=== PATIENT | female | born 1970 | race Caucasian/White ===

== ENCOUNTER 2021-02-20 14:34 | Outpatient (REF) | payer OTHER, SELFPAY ==
[2021-02-20 16:56] LABS: Hematocrit 36.5 % (37-47); Hemoglobin 11.5 g/dl (12.0-16.0); Mean Corpuscular HGB Conc 31.5 g/dl (31.0-35.0); Mean Corpuscular Hemoglobin 26.3 pg (27.0-33.0); Mean Corpuscular Volume 83.3 fL (80-98); Mean Platelet Volume 10.9 fL (9.4-12.3); Platelet Count 314 X10*3/uL (160-400); Red Blood Count 4.38 X10*6/uL (4.20-5.50); Red Cell Distribution Width 16.9 % (11.0-16.0)
[2021-02-20 17:22] LABS: Alanine Aminotransferase 18 U/L (0-31); Albumin Level 4.2 g/dL (3.5-5.0); Alkaline Phosphatase 39 U/L (39-117); Anion Gap 13 (12-20); Aspartate Amino Transferase 21 U/L (5-31); Bilirubin Total 0.4 mg/dL (0.0-1.0); Blood Urea Nitrogen 11 mg/dL (9-16); Calcium 9.2 mg/dL (8.4-10.2); Carbon Dioxide 26 mmol/L (22-29); Chloride 104 mmol/L (96-108); Cholesterol 213 mg/dL; Estimated Glomerular Filt Rate > 60; Glucose Fasting 65 mg/dL (60-99); HDL Cholesterol 72 mg/dL; Iron 41 mcg/dL (30-160); LDL Cholesterol Calculated 129 mg/dl; Percent Iron Saturation 10 % (15-50); Potassium 4.4 mmol/L (3.3-5.1); Sodium 139 mmol/L (135-145); Total Iron Binding Capacity 411 mcg/dL (228-428); Total Protein 7.1 g/dL (6.5-8.0); Triglycerides 63 mg/dL; Unsaturated Iron Binding 370 ug/dL
[2021-02-20 17:42] LABS: TSH reflex Free T4 0.49 uIU/mL (0.32-4.0)
== END 2021-02-20 14:35 | disposition home or self-care (01) ==
LOC: HO.HMGCLDS 14:34
PROVIDERS: PCP Internal Medicine; Visit Provider Internal Medicine
DX: Z00.00 Encounter for general adult medical examination without abnormal findings (principal); I10 Essential (primary) hypertension
CPT/HCPCS: 36415; 80053; 80061; 83540; 84443; 85027

== ENCOUNTER 2021-08-28 | Outpatient (REF) | payer OTHER, SELFPAY | END 2021-08-28 00:01 | disposition home or self-care (01) | LOC: HO.LNP | PROVIDERS: Visit Provider Internal Medicine | DX: Z12.4 Encounter for screening for malignant neoplasm of cervix (principal); Z11.51 Encounter for screening for human papillomavirus (HPV) | CPT/HCPCS: 87624 ==

== ENCOUNTER 2021-09-01 13:10 | Outpatient (REF) | payer OTHER, SELFPAY ==
[2021-09-04 02:32] LABS: HPV mRNA E6/E7 Not Detected (Not Detected)
== END 2021-09-01 13:11 | disposition home or self-care (01) ==
LOC: HO.LAB 13:10
PROVIDERS: Visit Provider Internal Medicine
DX: Z12.4 Encounter for screening for malignant neoplasm of cervix (principal); Z11.51 Encounter for screening for human papillomavirus (HPV)
CPT/HCPCS: 87624; 88142

== ENCOUNTER → 2021-11-25 12:57 | Outpatient (BNVA) | payer OTHER, SELFPAY | PROVIDERS: PCP Internal Medicine; Referring Provider Internal Medicine; Visit Provider Nurse Practitioner Family ==

== ENCOUNTER 2022-11-07 10:14 | Outpatient (REF) | payer OTHER, SELFPAY ==
[2022-11-07 11:09] LABS: MANUAL DIFF FLAG NO
[2022-11-07 11:11] LABS: Basophils Percent Auto 0.3 % (0-2); Eosinophils Percent Auto 0.3 % (0-4); Hematocrit 32.7 % (37.0-47.0); Hemoglobin 10.1 g/dl (12.0-16.0); Imm Gran Pct Auto 0.3 % (0.0-0.4); Lymphocytes Percent Auto 30.7 % (20-40); Mean Corpuscular HGB Conc 30.9 g/dl (31.0-35.0); Mean Corpuscular Hemoglobin 24.2 pg (27.0-33.0); Mean Corpuscular Volume 78.2 fL (80.0-98.0); Mean Platelet Volume 9.8 fL (9.4-12.3); Monocytes Percent Auto 8.3 % (2-11); Neutrophils Percent Auto 60.1 % (45-73); Platelet Count 372 X10*3/uL (160-400); Red Blood Count 4.18 X10*6/uL (4.20-5.50); Red Cell Distribution Width 17.3 % (11.0-16.0); White Blood Count 5.9 X10*3/uL (4.8-10.8)
[2022-11-07 11:12] LABS: Imm Gran Abs Auto 0.02 X10*3/uL (0.00-0.03); Lymphocytes Absolute Auto 1.8 X10*3/uL (1.2-4.9); Monocytes Absolute Auto 0.5 X10*3/uL (0.1-1.2); Neutrophils Absolute Auto 3.5 x10*3/uL (2.0-8.3)
[2022-11-07 11:45] LABS: Alanine Aminotransferase 19 U/L (0-31); Albumin Level 3.8 g/dL (3.5-5.0); Alkaline Phosphatase 40 U/L (39-117); Anion Gap 12 (12-20); Aspartate Amino Transferase 18 U/L (5-31); Bilirubin Total 0.3 mg/dL (0.0-1.0); Blood Urea Nitrogen 15 mg/dL (9-16); Calcium 9.1 mg/dL (8.4-10.2); Carbon Dioxide 26 mmol/L (22-29); Chloride 107 mmol/L (96-108); Cholesterol 253 mg/dL; Estimated Glomerular Filt Rate > 60; Glucose Fasting 77 mg/dL (60-99); HDL Cholesterol 81 mg/dL; LDL Cholesterol Calculated 158 mg/dl; Potassium 4.9 mmol/L (3.3-5.1); Sodium 140 mmol/L (135-145); Total Protein 6.8 g/dL (6.5-8.0); Triglycerides 73 mg/dL
[2022-11-07 12:00] LABS: TSH reflex Free T4 0.71 uIU/mL (0.32-4.0); Vitamin D 25-OH Total 46.4 ng/mL (>30)
== END 2022-11-07 10:15 | disposition home or self-care (01) ==
LOC: HO.HMGCLDS 10:14
PROVIDERS: PCP Internal Medicine; Visit Provider Internal Medicine
DX: Z00.00 Encounter for general adult medical examination without abnormal findings (principal); I10 Essential (primary) hypertension
CPT/HCPCS: 36415; 80053; 80061; 82306; 84443; 85025

== ENCOUNTER 2022-12-09 10:53 | Outpatient (REF) | payer OTHER, SELFPAY ==
--- NOTE | ~2022-12-09 | MM_ITS ---
EXAMINATION: MM DIAGNOSTIC DIGITAL BREAST TOMOSYNTHESIS, BILATERAL US BREAST, BILATERAL CLINICAL INFORMATION: Left breast lump. Right breast pain. The lifetime risk of breast cancer based on the Tyrer-Cuzick Model is 7.9%. COMPARISON: Mammography: None TECHNIQUE: Digital breast tomosynthesis is performed in both the craniocaudal and mediolateral oblique views along with computer-aided detection (CAD). Synthesized 2D images are generated from the tomosynthesis. Bilateral targeted ultrasound FINDINGS: The breasts are heterogeneously dense, which may obscure small masses (ACR BI-RADS breast composition Category c). There are no significant masses, abnormal calcifications, or other abnormalities. Targeted ultrasound evaluation of the right breast at approximately 8 to 10 o'clock position which has been occurring for 6 months before menses. No abnormal cyst or solid mass was identified. No abnormal region of distal sound shadowing. No edematous change within the parenchyma is seen. No suspicious lymph nodes. Targeted ultrasound evaluation of the left breast upper outer quadrant was then performed. No abnormal cyst or solid lesion is identified. No region of abnormal distal sound shadowing. No edematous change within the parenchyma is noted. Results are discussed with the patient at time of visit. MM/MM tomosynthesis diagnostic BI IMPRESSION: No specific mammographic or ultrasound findings to suggest malignancy. ASSESSMENT: BI-RADS 1: Negative RECOMMENDATION: Routine annual screening. Clinical follow-up for question of palpable abnormality. This patient's information was entered into a reminder system with a target due date for their next mammogram.
== END 2022-12-09 10:54 | disposition home or self-care (01) ==
LOC: HO.MAMMO 10:53
PROVIDERS: PCP Internal Medicine; Visit Provider Internal Medicine
DX: N64.4 Mastodynia (principal); N63.21 Unspecified lump in the left breast, upper outer quadrant
CPT/HCPCS: 76642; 77062; 77066

== ENCOUNTER 2023-04-03 12:26 | Emergency (ER) | payer OTHER, SELFPAY ==
[2023-04-03 12:54] VITALS: BP 168/72; PULSE 60; RESP 16; TEMP 36.6; O2SAT 99; BMI 28.2
--- NOTE | 2023-04-03 12:54 | ED_ITS ---
HPI - General Adult General Chief complaint: Allergic Reaction Stated complaint: rash/ hives on face- allergic reacting? Time Seen by Provider: 04/03/23 13:00 Source: patient and family Mode of arrival: ambulatory Limitations: no limitations History of Present Illness HPI narrative: 52-year-old female with history of hypertension, anemia, hyperlipidemia, history of urticaria in the past who is presenting to the ER for evaluation of a burning, red, itchy rash and hives on her face for the last 4 days. Patient reports that the rash started around her eyes bilaterally and has spread to the entirety of her face. She has been taking Bhavani for possible allergies. She denies any new medications, lotions, detergents, creams. She states she has a history of full body urticaria in the past, several years ago that resolved on its own. She denies any changes in her vision but she has some burning sensation as the rash is close to her eyes. There are no lesions on her soles or palms. Today she reports a new small lesion on the roof of her mouth. she denies any trauma. She denies any pain. MD complaint: Facial rash Onset (ago): day(s) (4) Location: face and eyes Radiation: non-radiation Severity: moderate Quality: burning and other ( pruritic) Pain Consistency: constant Relieving factors: none Exacerbating factors: none Associated symptoms: denies other symptoms Treatments prior to arrival: none Related Data Previous Rx's Medication Instructions Recorded bisacodyl 5 mg tablet,delayed 10 mg PO ONCE 1 day #2 tabs 11/25/21 release (Dulcolax (bisacodyl)) docusate sodium 100 mg capsule 100 mg PO BEDTIME #30 caps 11/25/21 polyethylene glycol 3350 17 238 g PO ONCE #238 grams 11/25/21 gram/dose oral powder (Miralax) olmesartan 5 mg tablet 10 mg PO DAILY #180 tabs 09/03/22 diphenhydramine HCl 25 mg capsule 50 mg PO TID PRN itching #30 caps 04/03/23 (Benadryl) famotidine 40 mg tablet (Pepcid) 40 mg PO DAILY #30 tabs 04/03/23 prednisone 10 mg tablets in a dose See Taper PO DAILY #48 ea 04/03/23 pack Allergies Allergy/AdvReac Type Severity Reaction Status Date / Time Seasonal Allergies Allergy Mild unknown Verified 01/29/23 12:56 Review of Systems Review of Systems: Yes all other systems are reviewed and are negative [facility] Past Medical History Medical History Annual physical exam Enlarged thyroid HTN (hypertension) Mammogram declined Surgical History Hx of appendectomy Family History Family History (Updated 01/29/23 @ 13:07 by DARRYL Trejo) Father No problems noted. Mother Hypertension Social History Social History Housing: House Patient Tobacco Use Status: Never used Tobacco e-Cigarette/Vaping Use: Never Used Advance Directives: No Current occupational status: employed Cognitive needs: No Hearing needs: No Vision needs: No Physical Exam ED Vital Signs: Vital Signs - 24 hr 04/03/23 12:54 Temperature 97.9 F Pulse Rate 60 Respiratory Rate 16 Blood Pressure 168/72 H Pulse Oximetry 99 Oxygen Delivery Method Room Air BMI result Body Mass Index 28.2 Appearance: Alert. Oriented X3. No acute distress. HEENT: normocephalic, atraumatic, there is an erythematous, raised urticarial type rash on the face, including the periorbital region, nasal labial folds, forehead, chin. cheeks are partially spared. Airway is patent. No bugle lesions. No lip swelling or tongue swelling. There is a small, less than 1 cm lesion on the hard palate, nontender. Neck: No cervical lymphadenopathy. Normal inspection, no swelling. CVS: Normal heart rate and rhythm. Pulses normal. Respiratory: No respiratory distress. Lungs are clear throughout Skin: Skin warm and dry. Normal skin color. See HEENT exam for facial findings Extremities: normal inspection x4, no rash on the extremities. Neuro: Oriented X 3. No motor deficit. No sensory deficit. Course Course Course Narrative: RME performed by Deborah Geiger PA-C. Patient is a 52 year old assigned female at presenting to the emergency department with a rash to her face. Patient placed back in the waiting room pending room availability. Medications Administered Discontinued Medications Generic Name Dose Route Start Last Admin Trade Name Freq PRN Reason Stop Dose Admin Diphenhydramine HCl 50 mg 04/03/23 13:36 04/03/23 13:53 Diphenhydramine Hcl 25 Mg Capsule PO 04/03/23 13:37 50 mg ONCE ONE Administration Methylprednisolone Sodium Succinate 60 mg 04/03/23 13:36 04/03/23 13:55 Methylprednisolone Sod Succ 125 Mg/2 Ml Vial IM 04/03/23 13:37 60 mg ONCE ONE Administration Medical Decision Making Medical Decision Making [facility] Narrative: 52-year-old female with history of HTN, HLD, anemia, history of urticaria in the past presents to the ER for evaluation of a red, itchy, burning rash on the face for the last 4 days. No improvement with Bhavani. She does have a lesion on her hard palate that seems to be unrelated. No other mucosal lesions. No desquamation. vital signs are stable. Lab workup was unremarkable. Case was discussed with Dr. Faustino chowdary who is in agreement with steroids, Benadryl. Patient was encouraged follow-up with her primary care doctor this week and o btain a Dermatology referral given this is a recurrent issue for the patient. Comfortable discharge home. We discussed strict return precautions. Stable for discharge. Differential Diagnosis Differential Diagnoses: The differential diagnosis associated with the presentation includes eczema, allergic dermatitis, contact dermatitis, vasculitis, doubt TENS or SJS Lab Data [facility] Lab Attestation statement: I reviewed the patient's lab results. Normal CBC, normal BMP, unremarkable. 04/03/23 13:45 04/03/23 13:45 Labs: Lab Results 04/03/23 04/03/23 Range/Units 13:45 13:45 WBC 10.5 (4.8-10.8) X10*3/uL RBC 4.14 L (4.20-5.50) X10*6/uL Hgb 12.1 (12.0-16.0) g/dl Hct 37.8 (37.0-47.0) % MCV 91.3 (80.0-98.0) fL MCH 29.2 (27.0-33.0) pg MCHC 32.0 (31.0-35.0) g/dl RDW 14.6 (11.0-16.0) % Plt Count 357 (160-400) X10*3/uL MPV 9.8 (9.4-12.3) fL Immature Gran % (Auto) 0.4 (0.0-0.4) % Neut % (Auto) 72.9 (45-73) % Lymph % (Auto) 19.1 L (20-40) % [place] % (Auto) 7.0 (2-11) % Eos % (Auto) 0.2 (0-4) % Baso % (Auto) 0.4 (0-2) % Lymph # (Auto) 2.0 (1.2-4.9) X10*3/uL [place] # (Auto) 0.7 (0.1-1.2) X10*3/uL Eos # (Auto) 0.0 (0.0-0.4) X10*3/uL Baso # (Auto) 0.0 (0.0-0.2) X10*3/uL Abs Immat Gran (auto) 0.04 H (0.00-0.03) X10*3/uL Absolute Neuts (auto) 7.6 (2.0-8.3) x10*3/uL Absolute Nucleated RBC 0.000 (0.0-0.012) X10*3/uL Nucleated RBC % (auto) 0.0 (0.0-0.2) /100WBC Sodium 143 (135-145) mmol/L Potassium 4.1 (3.3-5.1) mmol/L Chloride 106 (96-108) mmol/L Carbon Dioxide 28 (22-29) mmol/L Anion Gap 13 (12-20) BUN 12 (9-16) mg/dL Creatinine 0.83 (0.5-1.4) mg/dL Estim Creat Clear Calc 75.5 Estimated GFR > 60 Random Glucose 83 (60-115) mg/dL Calcium 9.0 (8.4-10.2) mg/dL Prescription Management I considered prescription management with: Other ( Prednisone and Benadryl) Chronic Conditions Patient?s care impacted by: Hypertension Critical Care Time Critical Care Time Critical Care Time: No Discharge Plan Discharge Clinical Impression: Urticaria Patient Disposition: Home, Self-Care Instructions: Urticaria (ED) Additional Instructions: Your labs today were unremarkable. Your given intramuscular steroids in the emergency department. It is unclear the cause of your rash. Recommend taking the prescribed steroid medication as directed. Start the prednisone taper tomorrow, complete the entire course and do not miss any doses. Take Benadryl 50 mg every 6-8 hours as needed for rash and itching. Take Pepcid for the next 2 weeks. Follow-up with your primary care doctor this week. You may need a dermatology referral. Prescriptions: New prednisone 10 mg tablets,dose pack See Taper PO DAILY Qty: 48 0RF Taper: Prednisone 40 mg daily for 3 Days and 0 Hour 30 mg daily for 3 Days and 0 Hour 20 mg daily for 3 Days and 0 Hour 10 mg daily for 3 Days and 0 Hour Rx Instructions: discard remainder diphenhydramine HCl [Benadryl] 25 mg capsule 50 mg PO TID PRN (Reason: itching) Qty: 30 0RF famotidine [Pepcid] 40 mg tablet 40 mg PO DAILY Qty: 30 0RF No Action olmesartan 5 mg tablet 10 mg PO DAILY Qty: 180 3RF bisacodyl [Dulcolax (bisacodyl)] 5 mg tablet,delayed release (DR/EC) 10 mg PO ONCE 1 Days Qty: 2 0RF Rx Instructions: take 2 tabs at noon the day before your colonoscopy docusate sodium 100 mg capsule 100 mg PO BEDTIME Qty: 30 3RF polyethylene glycol 3350 [Miralax] 17 gram/dose powder 238 g PO ONCE Qty: 238 0RF Rx Instructions: As directed by gastroenterology department at [facility] Interventions: ED Discharge Assessment Last Done: 04/03/23 14:27
[2023-04-03 13:49] LABS: MANUAL DIFF FLAG NO
[2023-04-03 13:52] LABS: Basophils Percent Auto 0.4 % (0-2); Eosinophils Percent Auto 0.2 % (0-4); Hematocrit 37.8 % (37.0-47.0); Hemoglobin 12.1 g/dl (12.0-16.0); Imm Gran Abs Auto 0.04 X10*3/uL (0.00-0.03); Imm Gran Pct Auto 0.4 % (0.0-0.4); Lymphocytes Percent Auto 19.1 % (20-40); Mean Corpuscular Hemoglobin 29.2 pg (27.0-33.0); Mean Corpuscular Volume 91.3 fL (80.0-98.0); Mean Platelet Volume 9.8 fL (9.4-12.3); Monocytes Absolute Auto 0.7 X10*3/uL (0.1-1.2); Neutrophils Absolute Auto 7.6 x10*3/uL (2.0-8.3); Neutrophils Percent Auto 72.9 % (45-73); Platelet Count 357 X10*3/uL (160-400); Red Blood Count 4.14 X10*6/uL (4.20-5.50); Red Cell Distribution Width 14.6 % (11.0-16.0); White Blood Count 10.5 X10*3/uL (4.8-10.8)
[2023-04-03] MEDS: diphenhydrAMINE HCL 25 MG CAPSULE 50 MG PO (13:53)
[2023-04-03] MEDS: methylPREDNISolone Sod Succ 125 MG/2 ML VIAL 60 MG IM (13:55)
[2023-04-03 14:09] LABS: Anion Gap 13 (12-20); Blood Urea Nitrogen 12 mg/dL (9-16); Carbon Dioxide 28 mmol/L (22-29); Chloride 106 mmol/L (96-108); Creatinine Clr Calc Pharmacy 75.5; Estimated Glomerular Filt Rate > 60; Glucose Random 83 mg/dL (60-115); Potassium 4.1 mmol/L (3.3-5.1); Sodium 143 mmol/L (135-145)
== END 2023-04-03 14:28 | disposition home or self-care (01) ==
PROVIDERS: Physician Assistant; Emergency Provider Emergency Medicine; PCP Internal Medicine
DX: L50.9 Urticaria, unspecified (principal); I10 Essential (primary) hypertension; E78.5 Hyperlipidemia, unspecified; Z79.899 Other long term (current) drug therapy
CPT/HCPCS: 36415; 80048; 85025; 96372; 99282; 99284; J2930

== ENCOUNTER 2023-04-23 06:50 | Day surgery (SDC) | payer OTHER, SELFPAY ==
[2023-04-21 12:49] VITALS: BMI 28.3
--- NOTE | 2023-04-22 12:09 | HO.ANESPROP2 ---
Documented by User: Elizabeth Ward NP 04/22/23 12:11 HPI - Anesthesia Eval Consult details Narrative: 52yo F for Colonoscopy PMFSH Active Problems Active Problems: All Active Problems (Updated 04/04/23 @ 00:00 by Background Daemon) Hyperlipemia (Acute) Anemia (Acute) Breast lump in upper outer quadrant (Acute) Mammogram declined (Acute) Annual physical exam (Acute) HTN (hypertension) (Acute) Past Medical History Medical History (Updated 04/04/23 @ 00:00 by Background Daemon) Annual physical exam Enlarged thyroid HTN (hypertension) Mammogram declined Family History Family History (Updated 01/29/23 @ 13:07 by DARRYL Trejo) Father No problems noted. Mother Hypertension Surgical History Surgical History (Updated 04/23/23 @ 07:24 by Melissa Benitez RN) Hx of appendectomy Hx of colonoscopy Social History Social History Housing: House Patient Tobacco Use Status: Never used Tobacco e-Cigarette/Vaping Use: Never Used Are you DNR?: No Advance Directives: No Advance Directives Information Provided: Yes Nutrition Risks: No Nutritional Risk Patient : No Current occupational status: employed Cognitive needs: No Hearing needs: No Vision needs: No Meds Allergies Allergy/AdvReac Type Severity Reaction Status Date / Time Seasonal Allergies Allergy Mild unknown Verified 01/29/23 12:56 Exam Exam Date and Time: April 22, 2023 1209 Height,Weight and Vital Signs: Height 5 ft 2 in Weight 70.307 kg Pertinent Lab Results Pertinent Lab Results: Laboratory Tests 04/03/23 04/03/23 13:45 13:45 WBC 10.5 Hgb 12.1 Hct 37.8 Plt Count 357 Sodium 143 Potassium 4.1 Chloride 106 Carbon Dioxide 28 BUN 12 Creatinine 0.83 Assessment and Plan Assessment Anesthesia Assessment: Chart Reviewed Documented by User: Rikki Merino MD 04/23/23 07:45 PMFSH Past Medical History Medical History (Updated 04/04/23 @ 00:00 by Norman Esquivel) Annual physical exam Enlarged thyroid HTN (hypertension) Mammogram declined Family History Family History (Updated 01/29/23 @ 13:07 by DARRYL Trejo) Father No problems noted. Mother Hypertension Family history of problems with anesthesia: No Surgical History Surgical History (Updated 04/23/23 @ 07:24 by Melissa Benitez RN) Hx of appendectomy Hx of colonoscopy History of Problems with Anesthesia: No Social History Social History Housing: House Patient Tobacco Use Status: Never used Tobacco e-Cigarette/Vaping Use: Never Used Are you DNR?: No Advance Directives: No Advance Directives Information Provided: Yes Nutrition Risks: No Nutritional Risk Patient : No Current occupational status: employed Cognitive needs: No Hearing needs: No Vision needs: No Meds Allergies Allergy/AdvReac Type Severity Reaction Status Date / Time Seasonal Allergies Allergy Mild unknown Verified 01/29/23 12:56 Exam Airway Mallampati Class: II TM Dist: >3cm Neck ROM: Full Loose/Missing/Broken Teeth: No Heart: ok Lungs: ok Assessment and Plan Final Anesthetic Review Family History of Problems with Anesthesia: No History of Problems with Anesthesia: No NPO: Yes ASA Class: II Final Preanesthetic Review: No Changes in Pt Med Stat, Meds/Allgs Chart Reviewed, Consent Obtained/Reviewed and Anes Risks/Benef Reviewed Patient Risk: Low Procedure Risk: Low Anesthetic Plan Anesthetic Plan: MAC: and Agree w/ Assess. and Plan Disposition: Standard PACU
[2023-04-23 06:59] VITALS: BP 170/83; PULSE 65; RESP 20; TEMP 36.5; O2SAT 98
[2023-04-23] MEDS: Lactated Ringers 1,000 ML 100 ML IVCONT (07:22)
--- NOTE | 2023-04-23 07:26 | PC.NURSE ---
facial rash redness secondary to anxiety per pt
--- NOTE | 2023-04-23 07:26 | MHC.SHP ---
Pre-Procedural Eval Section A Date of Service: 04/23/23 The patient is an INPATIENT: No The History & Physical has been completed within 30 days and I have reviewed it.: No Section B Chief Complaint: Screening, Constipation, Relevant Family History (Specify if Yes): No Relevant Social History: None Present Medications: see Short Stay Collaborative assessment Medical History: Significant History (Enlarged thyroid HTN (hypertension) Mammogram declined) History of Previous Operations: Relevant previous surgery/procedure and date(s) (History of appendicectomy) Allergies: Allergies Allergy/AdvReac Type Severity Reaction Status Date / Time Seasonal Allergies Allergy Mild unknown Verified 01/29/23 12:56 Review of Systems Sugical H&P ROS: Negative: Constitution, Cardiovascular, Respiratory and Gastrointestinal Exam Surgical H&P Exam: Normal: Heart, Normal: Lungs, Normal: Extremities and Normal: Abdomen Plan Diagnosis/Plan: Unchanged I have reviewed the history and physical and performed a pertinent physical examination on my patient. No changes have occurred unless specified. Time Spent With Patient Time: Total time managing care of this patient today ____ minutes.
--- NOTE | 2023-04-23 08:42 | W.PM.OPN ---
Operative Note Operative Note Date of Service: 04/23/23 Narrative: COLONOSCOPY TILL CECUM WITH BIOPSIES Pre-op diagnosis: Colon cancer screening (1st colonoscopy) Post-op diagnosis:? Colon polyps, diverticulosis, hemorrhoids Endoscopist:? Alex Che MD Anesthesia:?MAC Consent: Indications for the procedure and potential complications of bleeding, perforation, reaction to medications and missed diagnosis were discussed with the patient and informed consent was obtained. Instrument: Olympus PCF H 190 L variable stiffness pediatric colonoscope Monitoring: Vital signs and clinical assessment, intermittent blood pressure monitoring, continuous EKG monitoring, Pulse oximetry and Carbon Dioxide monitoring were done throughout the procedure. Please see anesthesia flowsheet. Colon withdrawl time was 17 minutes. Procedure: The patient was placed in the left lateral decubitis position and pre-procedure medications were administered. After a digital rectal examination of the ano-rectum, the video colonoscope was inserted into the rectum and advanced through the colon to the cecum. The colonoscope was slowly withdrawn in a retrograde panoramic fashion and the colon mucosa was carefully examined including a retroflexed view of the rectum. Findings and interventions are described below. Procedure Difficulty: Without difficulty Findings: Terminal Ileum: Not evaluated Cecum: Normal Ascending Colon: A 4-5 mm diminutive appearing polyp in the mid AC - removed with a cold bx Transverse Colon: Normal Descending Colon: Normal Sigmoid Colon: A 5-6 mm diminutice appearing polyp - removed with a cold bx. Moderate diverticulosis Rectum: Normal Ano-rectum: Moderate internal hemorrhoids Colon preparation: Excellent Impression and Post Procedure Diagnosis: Colonoscopy Findings: Two small polyps removed Moderate diverticulosis seen in the sigmoid colon Moderate hemorrhoids on retroflexed exam. Plan: I will send a letter with pathology results Repeat Colonoscopy interval based on path results - in 5 years if polyps are adenomatous and 10 years if polyps are hyperplastic. Above findings were reviewed with the patient and colon polyps and diverticulosis handouts were given in the discharge area
[2023-04-23 09:20] VITALS: BP 126/69; PULSE 55; RESP 18; TEMP 36.2; O2SAT 98
[2023-04-23 09:35] VITALS: BP 146/83; PULSE 55; RESP 18; TEMP 36.2; O2SAT 99
== END 2023-04-23 09:45 | disposition home or self-care (01) ==
PROVIDERS: PCP Internal Medicine; Visit Provider Internal Medicine Gastroenterology
PROC: 0DJD8ZZ Inspection of Lower Intestinal Tract, Via Natural or Artificial Opening Endoscopic (ICD-10-PCS; CPT 45378; principal; 2023-04-23 08:30)
DX: Z12.11 Encounter for screening for malignant neoplasm of colon (principal); K63.5 Polyp of colon; K57.30 Diverticulosis of large intestine without perforation or abscess without bleeding; K64.8 Other hemorrhoids; K59.00 Constipation, unspecified; I10 Essential (primary) hypertension; E78.5 Hyperlipidemia, unspecified; D64.9 Anemia, unspecified; E04.9 Nontoxic goiter, unspecified; J30.2 Other seasonal allergic rhinitis
CPT/HCPCS: 45380; 88305

== ENCOUNTER 2023-05-07 08:00 | Outpatient (REF) | payer OTHER, SELFPAY ==
[2023-05-07 11:34] LABS: MANUAL DIFF FLAG NO
[2023-05-07 11:53] LABS: Basophils Percent Auto 0.2 % (0-2); Hematocrit 39.1 % (37.0-47.0); Hemoglobin 12.5 g/dl (12.0-16.0); Imm Gran Abs Auto 0.05 X10*3/uL (0.00-0.03); Imm Gran Pct Auto 0.6 % (0.0-0.4); Lymphocytes Absolute Auto 1.4 X10*3/uL (1.2-4.9); Lymphocytes Percent Auto 15.5 % (20-40); Mean Corpuscular Hemoglobin 29.1 pg (27.0-33.0); Mean Corpuscular Volume 90.9 fL (80.0-98.0); Mean Platelet Volume 10.9 fL (9.4-12.3); Monocytes Absolute Auto 0.4 X10*3/uL (0.1-1.2); Monocytes Percent Auto 4.8 % (2-11); Neutrophils Percent Auto 78.9 % (45-73); Platelet Count 354 X10*3/uL (160-400); Red Cell Distribution Width 13.5 % (11.0-16.0); White Blood Count 8.9 X10*3/uL (4.8-10.8)
[2023-05-07 12:46] LABS: Alanine Aminotransferase 18 U/L (0-31); Albumin Level 3.7 g/dL (3.5-5.0); Alkaline Phosphatase 42 U/L (39-117); Anion Gap 13 (12-20); Aspartate Amino Transferase 15 U/L (5-31); Bilirubin Total 0.3 mg/dL (0.0-1.0); Blood Urea Nitrogen 9 mg/dL (9-16); Calcium 9.3 mg/dL (8.4-10.2); Carbon Dioxide 24 mmol/L (22-29); Chloride 107 mmol/L (96-108); Cholesterol 221 mg/dL; Estimated Glomerular Filt Rate > 60; Glucose Fasting 100 mg/dL (60-99); HDL Cholesterol 77 mg/dL; Iron 54 mcg/dL (30-160); LDL Cholesterol Calculated 131 mg/dl; Percent Iron Saturation 17 % (15-50); Potassium 4.2 mmol/L (3.3-5.1); Sodium 140 mmol/L (135-145); Total Iron Binding Capacity 322 mcg/dL (228-428); Total Protein 6.7 g/dL (6.5-8.0); Triglycerides 67 mg/dL; Unsaturated Iron Binding 268 ug/dL
== END 2023-05-07 08:01 | disposition home or self-care (01) ==
LOC: HO.HMGCLDS 08:00
PROVIDERS: PCP Internal Medicine; Visit Provider Internal Medicine
DX: D64.9 Anemia, unspecified (principal); E78.5 Hyperlipidemia, unspecified; K57.90 Diverticulosis of intestine, part unspecified, without perforation or abscess without bleeding; L20.84 Intrinsic (allergic) eczema; Z98.890 Other specified postprocedural states
CPT/HCPCS: 36415; 80053; 80061; 83540; 85025

== ENCOUNTER 2023-05-24 12:35 | Outpatient (AMB) | payer OTHER, SELFPAY ==
--- NOTE | 2023-05-24 12:49 | A.OFFPC_ITS ---
Vital Signs 05/24/23 12:50 Height 5 ft 2 in Weight 162 lb BMI 29.6 BP 132/82 Blood Pressure Location Rt brachial Position Sitting Pulse 74 Pulse Source Pulse Oximeter Pulse Oximetry (%) 99 Oxygen Delivery Method Room Air Intake Visit Reasons: 3m follow up HTN Intake Note: Pt is here today for her 3 months f/u HTN Allergies Seasonal Allergies Allergy (Mild, Verified 05/24/23 12:50) unknown [place] fruit Allergy (Severe, Uncoded 05/24/23 12:50) Hives Medication List - Last Reconciled 05/24/23 by Carleen De Jesus MD doxycycline hyclate 100 mg PO BID hydrocortisone 2.5% (Proctosol HC) 1 appl VA BID-QID PRN olmesartan 10 mg (2 x 5 mg) PO DAILY Tobacco use date assessed: 05/24/23 Dental Screening Dental Screen Date: 05/24/23 Did you have a dental visit in the last 12 months?: Yes Did you have a dental problem in the last 6 months where you did not have access to dental care?: Yes Was dental information given to patient?: Patient has dentist HPI 3m follow up HTN HPI Details Pt presents for f/u of HTN. Pt c/o erythematous rash on face getting worse for the last 2 months. Pt has been using [id number] hydrocortisone cream which helps temporarily. Patient denies exposure to new chemicals. She denies rash on the rest of her body. Patient has been taking olmesartan for her hypertension. [facility] Medical History Annual physical exam Enlarged thyroid HTN (hypertension) Mammogram declined Surgical History Hx of appendectomy Hx of colonoscopy Family History Father No problems noted. Mother Hypertension Social History Housing: House Patient Tobacco Use Status: Never used Tobacco e-Cigarette/Vaping Use: Never Used Current occupational status: employed Cognitive needs: No Hearing needs: No Vision needs: No Questionnaire Thrive Questionnaire Date Thrive assessed: 09/03/22 AGUSTO-7 AMB Questionnaire AGUSTO-7 Date AGUSTO - 7 assessed: 01/29/23 Source: Developed by Drs. Amandeep Montero, Lara Lucas, Patrick Roberts and colleagues, with an educational elmer from [employer]. Review of Systems Const All systems reviewed & are unremarkable except as noted in HPI and below Reports no additional complaints Eyes Reports no additional complaints ENT Reports no additional complaints Card Reports no additional complaints Resp Reports no additional complaints GI Reports no additional complaints Reports no additional complaints Physical exam (Primary Care) Vital Signs: Last Vital Signs Pulse 74 05/24/23 12:50 BP 132/82 05/24/23 12:50 Pulse Ox 99 05/24/23 12:50 Oxygen Delivery Method Room Air 05/24/23 12:50 BMI result Body Mass Index 29.6 Tobacco/Smoking Status: Tobacco use Status Tobacco use date assessed 05/24/23 05/24/23 12:57 Patient Tobacco Use Status Never used Tobacco 05/24/23 12:57 e-Cigarette/Vaping Use Never Used 05/24/23 12:57 Thrive Assessment: Date of Thrive Assessment Date Thrive assessed 09/03/22 05/24/23 12:57 Const Other: There is erythematous rash on the face forehead and cheeks General: no acute distress Eyes General: appearance normal, both eyes and all related structures Resp Effort & Inspection: normal respiratory effort Auscultation: clear to auscultation bilaterally Cardio Rhythm: regular rhythm Heart sounds: S1 normal heart sound present and S2 normal heart sound present GI Palpation (GI): Soft to palpation Assessment and Plan Assessment & Plan (1) Rash of face: Code(s): R21 - Rash and other nonspecific skin eruption Plan: For Steroid induced rash patient was advised to stop using [id number] hydrocortisone cream. Doxycycline 100 mg twice a day is prescribed for 10 days and patient will follow-up in 2 weeks she has an appointment scheduled with commissioned sales associate in the fall (2) HTN (hypertension): Code(s): I10 - Essential (primary) hypertension Plan: Continue olmesartan Medications: New doxycycline hyclate 100 mg PO BID 20 tabs 0RF Coding Level of Care Code Est Pt Level 3 (52440) Diagnoses Rash of face R21 HTN (hypertension) I10
[2023-05-24 12:50] VITALS: BP 132/82; PULSE 74; O2SAT 99; BMI 29.6
== END 2023-05-24 14:08 | disposition home or self-care (01) ==
PROVIDERS: PCP Internal Medicine; Visit Provider Internal Medicine
DX: R21 Rash and other nonspecific skin eruption (principal); I10 Essential (primary) hypertension
CPT/HCPCS: 99213

== ENCOUNTER 2023-06-08 13:16 | Outpatient (AMB) | payer OTHER, SELFPAY ==
[2023-06-08 13:18] VITALS: BP 118/72; PULSE 78; O2SAT 98
--- NOTE | 2023-06-08 13:18 | A.OFFPC_ITS ---
Vital Signs 06/08/23 13:18 Height 5 ft 2 in Weight 164 lb BMI 30.0 BP 118/72 Blood Pressure Location Lt brachial Position Sitting Pulse 78 Pulse Source Pulse Oximeter Pulse Oximetry (%) 98 Oxygen Delivery Method Room Air Intake Visit Reasons: 2 week follow up Intake Note: Pt is hetre today for 2 weeks follow up visit on rash on her face. Allergies Seasonal Allergies Allergy (Mild, Verified 06/08/23 13:24) unknown [place] fruit Allergy (Severe, Uncoded 06/08/23 13:24) Hives Medication List - Last Reconciled 06/08/23 by Carleen De Jesus MD hydrocortisone 2.5% (Proctosol HC) 1 appl MD BID-QID PRN losartan 25 mg PO DAILY olmesartan 10 mg (2 x 5 mg) PO DAILY Tobacco use date assessed: 05/24/23 HPI 2 week follow up HPI Details Pt presents for f/u HTN. Patient states that olmesartan is too expensive. Facial rash resolved after patient stopped using hydrocortisone cream. [facility] Medical History Annual physical exam Enlarged thyroid HTN (hypertension) Mammogram declined Surgical History Hx of appendectomy Hx of colonoscopy Family History Father No problems noted. Mother Hypertension Social History Housing: House Patient Tobacco Use Status: Never used Tobacco e-Cigarette/Vaping Use: Never Used Current occupational status: employed Cognitive needs: No Hearing needs: No Vision needs: No Questionnaire Thrive Questionnaire Date Thrive assessed: 09/03/22 AGUSTO-7 AMB Questionnaire AGUSTO-7 Date AGUSTO - 7 assessed: 01/29/23 Source: Developed by Drs. Amandeep Montero, Lara Lucas, Patrick Roberts and colleagues, with an educational elmer from [employer] Review of Systems Const All systems reviewed & are unremarkable except as noted in HPI and below Reports no additional complaints Eyes Reports no additional complaints ENT Reports no additional complaints Card Reports no additional complaints Resp Reports no additional complaints GI Reports no additional complaints Physical exam (Primary Care) Vital Signs: Last Vital Signs Pulse 78 06/08/23 13:18 BP 118/72 06/08/23 13:18 Pulse Ox 98 06/08/23 13:18 Oxygen Delivery Method Room Air 06/08/23 13:18 BMI result Body Mass Index 30.0 Tobacco/Smoking Status: Tobacco use Status Tobacco use date assessed 05/24/23 06/08/23 13:18 Patient Tobacco Use Status Never used Tobacco 06/08/23 13:18 e-Cigarette/Vaping Use Never Used 06/08/23 13:18 Thrive Assessment: Date of Thrive Assessment Date Thrive assessed 09/03/22 06/08/23 13:18 Const General: no acute distress HENMT Face and sinus: Yes normal facial exam Eyes General: appearance normal, both eyes and all related structures Resp Effort & Inspection: normal respiratory effort Auscultation: clear to auscultation bilaterally Cardio Rhythm: regular rhythm Heart sounds: S1 normal heart sound present and S2 normal heart sound present GI Palpation (GI): Soft to palpation Percussion: Yes normal to percussion Auscultation: normal bowel sounds Assessment and Plan Assessment & Plan (1) Rash: Code(s): R21 - Rash and other nonspecific skin eruption Plan: resolved (2) Anemia: Comment: Iron deficiency, will have colonoscopy in 05/23 Code(s): D64.9 - Anemia, unspecified Plan: cont iron supplement check CBC and iron profile in 3 months (3) HTN (hypertension): Comment: Olmesartan too expensive Code(s): I10 - Essential (primary) hypertension Plan: Change olmesartan to losartan 25 mg. Follow-up in 3 months for physical (4) Hyperlipemia: Code(s): E78.5 - Hyperlipidemia, unspecified Plan: Continue low-cholesterol diet Orders: Orders Lipid Panel 3 Months D64.9 - Anemia, unspecified, E78.5 - Hyperlipidemia, unspecified, I10 - Essential (primary) hypertension Comprehensive [place]. Panel Fast 3 Months D64.9 - Anemia, unspecified, E78.5 - Hyperlipidemia, unspecified, I10 - Essential (primary) hypertension Complete Blood Count Auto Diff 3 Months D64.9 - Anemia, unspecified, E78.5 - Hyperlipidemia, unspecified, I10 - Essential (primary) hypertension TSH reflex Free T4 3 Months D64.9 - Anemia, unspecified, E78.5 - Hyperlipidemia, unspecified, I10 - Essential (primary) hypertension IRON PROFILE 3 Months D64.9 - Anemia, unspecified Referrals Allergy & Immunology Referral R21 - Rash and other nonspecific skin eruption Medications: New losartan 25 mg PO DAILY 90 tabs 2RF Coding Level of Care Code Est Pt Level 4 (46346) Diagnoses Rash R21 Anemia D64.9 HTN (hypertension) I10 Hyperlipemia E78.5
== END 2023-06-08 13:58 | disposition home or self-care (01) ==
PROVIDERS: PCP Internal Medicine; Visit Provider Internal Medicine
DX: R21 Rash and other nonspecific skin eruption (principal); D64.9 Anemia, unspecified; I10 Essential (primary) hypertension; E78.5 Hyperlipidemia, unspecified
CPT/HCPCS: 99214

== ENCOUNTER 2024-01-13 12:43 | Outpatient (AMB) | payer OTHER, SELFPAY ==
[2024-01-13 12:49] VITALS: BP 136/78; PULSE 82; O2SAT 97; BMI 30.4
--- NOTE | 2024-01-13 12:49 | A.OFFPC_ITS ---
Vital Signs 01/13/24 12:49 Height 5 ft 2 in Weight 166 lb BMI 30.4 BP 136/78 Blood Pressure Location Lt brachial Position Sitting Pulse 82 Pulse Source Pulse Oximeter Pulse Oximetry (%) 97 Oxygen Delivery Method Room Air Intake Visit Reasons: PHY Intake Note: Pt is here today for PE. Allergies Seasonal Allergies Allergy (Mild, Verified 01/13/24 12:54) unknown [place] fruit Allergy (Severe, Uncoded 01/13/24 12:54) Hives Tobacco use date assessed: 01/13/24 Dental Screening Dental Screen Date: 01/13/24 Did you have a dental visit in the last 12 months?: Yes Did you have a dental problem in the last 6 months where you did not have access to dental care?: No Was dental information given to patient?: Patient has dentist HPI PHY HPI Details Patient presents for PE. PFSH Medical History Mammogram declined Annual physical exam HTN (hypertension) Enlarged thyroid Surgical History Hx of colonoscopy Hx of appendectomy Family History Father No problems noted. Mother Hypertension Social History Housing: House Patient Tobacco Use Status: Never used Tobacco e-Cigarette/Vaping Use: Never Used Current occupational status: employed Cognitive needs: No Hearing needs: No Vision needs: No Questionnaire PHQ-9 Over the last 2 weeks, how often have you been bothered by any of the following problems? 1. Little interest or pleasure in doing things: not at all 2. Feeling down, depressed, or hopeless: not at all 3. Trouble falling or staying asleep, or sleeping too much: not at all 4. Feeling tired or having little energy: not at all 5. Poor appetite or overeating: not at all 6. Feeling bad about yourself - or that you are a failure or have let yourself or your family down: not at all 7. Trouble concentrating on things, such as reading the newspaper or watching television: not at all 8. Moving or speaking so slowly that other people could have noticed. Or the opposite - being so fidgety or restless that you have been moving around a lot more than usual: not at all 9. Thoughts that you would be better off or of hurting yourself in some way: not at all Total score: 0 Depression Screening Interpretation: Negative Depression Screening Done: Yes Source: Developed by Drs. Amandeep Montero, Lara Lucas, Patrick Roberts and colleagues, with an educational elmer from [employer]. Thrive Questionnaire Date Thrive assessed: 01/13/24 I am a: Patient What is your living situation today?: I have a steady place to live Within the past 12 months, did the food you bought not last and you didn't have the money to get more?: Never true Within the past 12 months, did you worry whether your food would run out before you got money to buy more?: Never true Do you have trouble paying for medicines?: No Do you have trouble getting transportation to medical appointments?: No Do you have trouble paying your heating and electricity bill?: No Do you have trouble taking care of your child, family member or friend?: No Do you have trouble with day-to-day activities such as bathing, preparing meals, shopping, managing finances, etc.?: No Are you currently unemployed and looking for a job?: No Are you interested in more education?: No Please select the resources that you would like help with: None Currently or been in a relationship where the following occur: no concerns reported THRIVE Score: 0 AUDIT C Alcohol Use Questionnaire (AUDIT-C) 1. How often do you have a drink containing alcohol?: Never 3. How often do you have six or more drinks on one occasion?: Never Total Score: 0 AGUSTO-7 AMB Questionnaire AGUSTO-7 Date AGUSTO - 7 assessed: 01/13/24 Feeling nervous, anxious, or on edge: 0 = Not at all Not being able to stop or control worryin = Not at all Worrying too much about different things: 0 = Not at all Trouble relaxin = Not at all Being so restless that it is hard to sit still: 0 = Not at all Becoming easily annoyed or irritable: 0 = Not at all Feeling afraid as if something awful might happen: 0 = Not at all Total AGUSTO-7 score (0-4 normal; 5-9 mild; 10-14 moderate; 15-21 severe): 0 Source: Developed by Drs. Amandeep Montero, Lara Lucas, Patrick Roberts and colleagues, with an educational elmer from [employer]. Review of Systems Const All systems reviewed & are unremarkable except as noted in HPI and below Reports no additional complaints Eyes Reports no additional complaints ENT Reports no additional complaints Card Reports no additional complaints Resp Reports no additional complaints GI Reports no additional complaints Reports no additional complaints Physical exam (Primary Care) Vital Signs: Last Vital Signs Pulse 82 01/13/24 12:49 BP 136/78 01/13/24 12:49 Pulse Ox 97 01/13/24 12:49 Oxygen Delivery Method Room Air 01/13/24 12:49 BMI result Body Mass Index 30.4 Tobacco/Smoking Status: Tobacco use Status Tobacco use date assessed 01/13/24 01/13/24 12:57 Patient Tobacco Use Status Never used Tobacco 01/13/24 12:57 e-Cigarette/Vaping Use Never Used 01/13/24 12:50 PHQ-9: PHQ-9 Score PHQ-9: Total score 0 01/13/24 12:57 Depression Screening Interpretation: Negative Thrive Assessment: Date of Thrive Assessment Date Thrive assessed 01/13/24 01/13/24 12:57 Currently or been in a relationship where the following occur: no concerns reported Const General: no acute distress HENMT Head: Yes normal to inspection Ears: hearing grossly normal bilaterally Throat: Yes posterior oropharynx normal Eyes General: appearance normal, both eyes and all related structures Neck Neck: Yes no lymphadenopathy and Yes supple Resp Effort & Inspection: normal respiratory effort Auscultation: clear to auscultation bilaterally Cardio Rhythm: regular rhythm Heart sounds: S1 normal heart sound present and S2 normal heart sound present GI Inspection: Yes normal to inspection Palpation (GI): Soft to palpation Percussion: Yes normal to percussion Auscultation: normal bowel sounds Assessment and Plan Assessment & Plan (1) Hyperlipemia: Code(s): E78.5 - Hyperlipidemia, unspecified Plan: CONTINUE LOW-CHOLESTEROL DIET CHECK LIPID PROFILE (2) Anemia: Comment: Iron deficiency, negative colonoscopy 05/23 Code(s): D64.9 - Anemia, unspecified Plan: Check CBC and iron count. Patient was advised to take iron supplement if iron level is low. She still has regular menses (3) HTN (hypertension): Comment: Olmesartan too expensive Code(s): I10 - Essential (primary) hypertension Plan: Increase losartan to 50 mg a day follow-up in 2 months (4) Annual physical exam: Comment: pap negative 2020 Code(s): Z00.00 - Encounter for general adult medical examination without abnormal findings Plan: Well-balanced diet regular physical activity discussed with the patient she is up-to-date with the mammogram colonoscopy and had negative Pap smear in 2020 Orders: Orders Complete Blood Count Auto Diff Today D64.9 - Anemia, unspecified, E78.5 - Hyperlipidemia, unspecified, I10 - Essential (primary) hypertension, Z00.00 - Encounter for general adult medical examination without abnormal findings UA w Microscopic Today D64.9 - Anemia, unspecified, E78.5 - Hyperlipidemia, unspecified, I10 - Essential (primary) hypertension, Z00.00 - Encounter for general adult medical examination without abnormal findings Comprehensive [place]. Panel Fast Today D64.9 - Anemia, unspecified, E78.5 - Hyperlipidemia, unspecified, I10 - Essential (primary) hypertension, Z00.00 - Encounter for general adult medical examination without abnormal findings Lipid Panel Today D64.9 - Anemia, unspecified, E78.5 - Hyperlipidemia, unspecified, I10 - Essential (primary) hypertension, Z00.00 - Encounter for general adult medical examination without abnormal findings TSH reflex Free T4 Today D64.9 - Anemia, unspecified, E78.5 - Hyperlipidemia, unspecified, I10 - Essential (primary) hypertension, Z00.00 - Encounter for general adult medical examination without abnormal findings IRON PROFILE Today D64.9 - Anemia, unspecified, E78.5 - Hyperlipidemia, unspecified, I10 - Essential (primary) hypertension, Z00.00 - Encounter for general adult medical examination without abnormal findings Medications: Discontinued olmesartan Discontinued Reason: Doctor's Order 10 mg (2 x 5 mg) PO DAILY 180 tabs 3RF Coding Level of Care Code Est Pt Prev Care 40-64y(56396) Diagnoses Hyperlipemia E78.5 Anemia D64.9 HTN (hypertension) I10 Annual physical exam Z00.00
== END 2024-01-13 13:26 | disposition home or self-care (01) ==
PROVIDERS: PCP Internal Medicine; Visit Provider Internal Medicine
DX: E78.5 Hyperlipidemia, unspecified (principal); D64.9 Anemia, unspecified; I10 Essential (primary) hypertension; Z00.00 Encounter for general adult medical examination without abnormal findings
CPT/HCPCS: 99396

== ENCOUNTER 2024-01-13 13:24 | Outpatient (REF) | payer OTHER, SELFPAY ==
[2024-01-13 16:02] LABS: MANUAL DIFF FLAG NO
[2024-01-13 16:13] LABS: Basophils Percent Auto 0.2 % (0-2); Eosinophils Percent Auto 0.2 % (0-4); Hematocrit 37.2 % (37.0-47.0); Hemoglobin 12.3 g/dl (12.0-16.0); Imm Gran Abs Auto 0.02 X10*3/uL (0.00-0.03); Imm Gran Pct Auto 0.4 % (0.0-0.4); Lymphocytes Absolute Auto 1.7 X10*3/uL (1.2-4.9); Mean Corpuscular HGB Conc 33.1 g/dl (31.0-35.0); Mean Corpuscular Hemoglobin 27.7 pg (27.0-33.0); Mean Corpuscular Volume 83.8 fL (80.0-98.0); Mean Platelet Volume 10.3 fL (9.4-12.3); Monocytes Absolute Auto 0.4 X10*3/uL (0.1-1.2); Monocytes Percent Auto 8.3 % (2-11); Neutrophils Absolute Auto 2.7 x10*3/uL (2.0-8.3); Neutrophils Percent Auto 55.9 % (45-73); Platelet Count 312 X10*3/uL (160-400); Red Blood Count 4.44 X10*6/uL (4.20-5.50); Red Cell Distribution Width 13.9 % (11.0-16.0); White Blood Count 4.8 X10*3/uL (4.8-10.8)
[2024-01-13 16:14] LABS: Appearance Urine Clear; Color Urine Yellow; Glucose Urine UA Negative (Negative); Leukocyte Esterase Urine Negative (Negative); Nitrite Urine Negative (Negative); UMIC TRIGGER UA YES; Urine Blood Large (3+) (Negative); Urine Ketones 15 mg/dL (Negative); Urine Protein Negative (Neg-Trace)
[2024-01-13 16:17] LABS: Bacteria Urine Trace (None Seen); Hyaline Casts Urine 0-2 /LPF (0-2); RBC Urine >20 /HPF (0-2); WBC Urine 0-5 /HPF (0-5)
[2024-01-13 16:36] LABS: Alanine Aminotransferase 28 U/L (0-31); Albumin Level 4.2 g/dL (3.5-5.0); Alkaline Phosphatase 45 U/L (39-117); Anion Gap 16 (12-20); Aspartate Amino Transferase 30 U/L (5-31); Bilirubin Total 0.3 mg/dL (0.0-1.0); Blood Urea Nitrogen 12 mg/dL (9-16); Calcium 9.6 mg/dL (8.4-10.2); Carbon Dioxide 24 mmol/L (22-29); Chloride 106 mmol/L (96-108); Cholesterol 160 mg/dL (<200); Estimated Glomerular Filt Rate > 60; Glucose Fasting 82 mg/dL (60-99); HDL Cholesterol 56 mg/dL (>40); Iron 51 mcg/dL (30-160); LDL Cholesterol Calculated 81 mg/dL (<100); Percent Iron Saturation 15 % (15-50); Potassium 4.2 mmol/L (3.3-5.1); Sodium 142 mmol/L (135-145); Total Iron Binding Capacity 348 mcg/dL (228-428); Total Protein 7.8 g/dL (6.5-8.0); Triglycerides 118 mg/dL (<150); Unsaturated Iron Binding 297 ug/dL
[2024-01-13 16:43] LABS: TSH reflex Free T4 < 0.01 uIU/mL (0.32-4.0)
[2024-01-13 17:14] LABS: Free T4 (Free Thyroxine) 1.96 ng/dL (0.71-1.85)
== END 2024-01-13 13:25 | disposition home or self-care (01) ==
LOC: HO.HMGCLDS 13:24
PROVIDERS: PCP Internal Medicine; Visit Provider Internal Medicine
DX: Z00.00 Encounter for general adult medical examination without abnormal findings (principal); E78.5 Hyperlipidemia, unspecified; D64.9 Anemia, unspecified; I10 Essential (primary) hypertension
CPT/HCPCS: 36415; 80053; 80061; 81001; 83540; 84439; 84443; 85025

== ENCOUNTER 2024-02-07 08:49 | Outpatient (REF) | payer OTHER, SELFPAY ==
--- NOTE | ~2024-02-07 | US_ITS ---
EXAMINATION: US RETROPERITONEAL LIMITED (RENAL ONLY) CLINICAL INFORMATION: Other microscopic hematuria. COMPARISON: None available. TECHNIQUE: Real-time imaging of the kidneys. Limited visualization due to bowel gas. FINDINGS: RIGHT KIDNEY: 11.6 x 3.3 x 5.2 cm (SAG x AP x TRV). Mild fullness right renal collecting system. Renal cortical thickness is normal. No renal calculi. Limited visualization. LEFT KIDNEY: 10.7 x 4.6 x 4.0 cm (SAG x AP x TRV). Moderate left hydronephrosis. Renal cortical thickness is normal. 6 mm lower pole and 4 mm mid pole echogenic non-shadowing foci may represent echogenic masses such as angiomyolipomas versus non-shadowing calculi. Limited visualization. US/US renal BI IMPRESSION: 1. Moderate left hydronephrosis. 2. Left renal 6 mm lower pole and 4 mm mid pole echogenic non-shadowing foci may represent echogenic masses such as angiomyolipomas versus non-shadowing calculi. 3. Mild fullness right renal collecting system. 4. CT scan employing renal mass protocol with intravenous contrast recommended for further evaluation.
== END 2024-02-07 08:50 | disposition home or self-care (01) ==
LOC: HO.US 08:49
PROVIDERS: PCP Internal Medicine; Visit Provider Internal Medicine
DX: R31.29 Other microscopic hematuria (principal)
CPT/HCPCS: 76775

== ENCOUNTER → 2024-02-24 09:19 | Outpatient (REF) | payer OTHER, SELFPAY ==
--- NOTE | ~2024-02-24 | NM_ITS ---
EXAMINATION: THYROID UPTAKE AND SCAN CLINICAL INFORMATION: Thyrotoxicosis. COMPARISON: No previous thyroid imaging studies are available for comparison. TECHNIQUE: Following the oral administration of 279 microcuries of I-123 sodium iodide, thyroid uptake was performed and expressed as a percentage of the administrated dose. Gamma scintillation camera images of the thyroid in the anterior and right and left anterior oblique views were obtained using a pinhole collimator following the administration of 10 mCi Tc-99m pertechnetate. FINDINGS: The uptake is 31.1% at 4 hours and 71.7% at 24 hours (Normal radioiodine uptake at 24 hours is 10% to 30%). The radioiodine uptake is markedly elevated. The radiopertechnetate thyroid scintigram demonstrates the thyroid gland to be normal in size, shape, and position. There is homogeneous distribution of activity within the the gland with no focal abnormalities noted. A faint pyramidal lobe is just barely visualized. The trapping function appears markedly increased diffusely.. A single anterior radioiodine image obtained at the time of the 24-hour uptake measurement is similar to the radio pertechnetate image. NM/NM thyroid w uptake IMPRESSION: Normal-sized thyroid gland with markedly elevated radioiodine uptake and markedly increased trapping function diffusely. In the clinical setting of thyrotoxicosis, these findings are most consistent with Graves' disease. No nodules are visualized.
== END ==
LOC: HO.NUCMED 09:19
PROVIDERS: PCP Internal Medicine; Visit Provider Internal Medicine
DX: E05.90 Thyrotoxicosis, unspecified without thyrotoxic crisis or storm (principal)
CPT/HCPCS: 78014; A9512; A9516

== ENCOUNTER 2024-02-26 07:15 | Outpatient (REF) | payer OTHER, SELFPAY ==
[2024-02-26 11:33] LABS: MANUAL DIFF FLAG NO
[2024-02-26 11:44] LABS: Urine Cytology See Pathology rpt
[2024-02-26 11:51] LABS: Basophils Percent Auto 0.5 % (0-2); Eosinophils Percent Auto 0.7 % (0-4); Hematocrit 35.6 % (37.0-47.0); Hemoglobin 11.6 g/dl (12.0-16.0); Imm Gran Abs Auto 0.01 X10*3/uL (0.00-0.03); Imm Gran Pct Auto 0.2 % (0.0-0.4); Lymphocytes Absolute Auto 1.7 X10*3/uL (1.2-4.9); Lymphocytes Percent Auto 39.9 % (20-40); Mean Corpuscular HGB Conc 32.6 g/dl (31.0-35.0); Mean Corpuscular Hemoglobin 27.2 pg (27.0-33.0); Mean Corpuscular Volume 83.6 fL (80.0-98.0); Mean Platelet Volume 10.5 fL (9.4-12.3); Monocytes Absolute Auto 0.7 X10*3/uL (0.1-1.2); Monocytes Percent Auto 15.1 % (2-11); Neutrophils Absolute Auto 1.9 x10*3/uL (2.0-8.3); Neutrophils Percent Auto 43.6 % (45-73); Platelet Count 272 X10*3/uL (160-400); Red Blood Count 4.26 X10*6/uL (4.20-5.50); Red Cell Distribution Width 13.1 % (11.0-16.0); White Blood Count 4.4 X10*3/uL (4.8-10.8)
[2024-02-26 12:17] LABS: Alanine Aminotransferase 42 U/L (0-31); Albumin Level 3.6 g/dL (3.5-5.0); Alkaline Phosphatase 44 U/L (39-117); Anion Gap 12 (12-20); Aspartate Amino Transferase 35 U/L (5-31); Bilirubin Total 0.3 mg/dL (0.0-1.0); Blood Urea Nitrogen 12 mg/dL (9-16); Calcium 9.5 mg/dL (8.4-10.2); Carbon Dioxide 24 mmol/L (22-29); Chloride 108 mmol/L (96-108); Cholesterol 158 mg/dL (<200); Estimated Glomerular Filt Rate > 60; Glucose Fasting 98 mg/dL (60-99); HDL Cholesterol 54 mg/dL (>40); Iron 54 mcg/dL (30-160); LDL Cholesterol Calculated 82 mg/dL (<100); Percent Iron Saturation 18 % (15-50); Potassium 3.9 mmol/L (3.3-5.1); Sodium 140 mmol/L (135-145); Total Iron Binding Capacity 300 mcg/dL (228-428); Total Protein 6.6 g/dL (6.5-8.0); Triglycerides 110 mg/dL (<150); Unsaturated Iron Binding 246 ug/dL
[2024-02-26 12:40] LABS: TSH reflex Free T4 < 0.01 uIU/mL (0.32-4.0)
[2024-02-26 13:18] LABS: Free T4 (Free Thyroxine) 2.02 ng/dL (0.71-1.85)
[2024-02-27 11:03] LABS: Triiodothyronine T3 Free 13.5 pg/mL (2.3-4.2)
== END 2024-02-26 07:16 | disposition home or self-care (01) ==
LOC: HO.HMGCLDS 07:15
PROVIDERS: PCP Internal Medicine; Visit Provider Internal Medicine
DX: E78.5 Hyperlipidemia, unspecified (principal); D64.9 Anemia, unspecified; I10 Essential (primary) hypertension; E05.90 Thyrotoxicosis, unspecified without thyrotoxic crisis or storm; R31.29 Other microscopic hematuria
CPT/HCPCS: 36415; 80053; 80061; 83540; 84439; 84443; 84481; 85025; 88112

== ENCOUNTER 2024-03-13 12:17 | Outpatient (AMB) | payer OTHER, SELFPAY ==
[2024-03-13 12:27] VITALS: BP 138/84; PULSE 94; O2SAT 98; BMI 30.2
--- NOTE | 2024-03-13 12:27 | A.OFFPC_ITS ---
Vital Signs 03/13/24 12:27 Height 5 ft 2 in Weight 165 lb BMI 30.2 BP 138/84 Blood Pressure Location Lt brachial Position Sitting Pulse 94 Pulse Source Pulse Oximeter Pulse Oximetry (%) 98 Oxygen Delivery Method Room Air Intake Visit Reasons: 2M F/U Intake Note: Pt is here today for her 2 months f/u Allergies Seasonal Allergies Allergy (Mild, Verified 03/13/24 12:28) unknown [place] fruit Allergy (Severe, Uncoded 03/13/24 12:28) Hives Medication List - Last Reconciled 03/13/24 by Carleen De Jesus MD cetirizine 10 mg PO DAILY hydrocortisone 2.5% (Proctosol HC) 1 appl [place] BID-QID PRN losartan 25 mg PO DAILY methimazole 5 mg PO DAILY Tobacco use date assessed: 03/13/24 Dental Screening Dental Screen Date: 03/13/24 Did you have a dental visit in the last 12 months?: No Was dental information given to patient?: Patient declined HPI 2M F/U HPI Details Patient presents for the follow-up of hypertension. She was found to have hyperthyroidism due to Graves disease and started taking methimazole last week. Patient is feeling better, noticed decreased sweating. PFSH Medical History Mammogram declined Annual physical exam HTN (hypertension) Enlarged thyroid Surgical History Hx of colonoscopy Hx of appendectomy Family History Father No problems noted. Mother Hypertension Social History Housing: House Patient Tobacco Use Status: Never used Tobacco e-Cigarette/Vaping Use: Never Used Current occupational status: employed Cognitive needs: No Hearing needs: No Vision needs: No Questionnaire Thrive Questionnaire Date Thrive assessed: 01/13/24 AUDIT C Alcohol Use Questionnaire (AUDIT-C) 1. How often do you have a drink containing alcohol?: Never Total Score: 0 AGUSTO-7 AMB Questionnaire AGUSTO-7 Date AGUSTO - 7 assessed: 01/13/24 Source: Developed by Drs. Amandeep Montero, Lara B.W. Patrick Lucas and colleagues, with an educational elmer from [employer]. Review of Systems Const All systems reviewed & are unremarkable except as noted in HPI and below Eyes Reports no additional complaints ENT Reports no additional complaints Card Reports no additional complaints Resp Reports no additional complaints GI Reports no additional complaints Reports no additional complaints Physical exam (Primary Care) Vital Signs: Last Vital Signs Pulse 94 03/13/24 12:27 BP 140/84 H 03/13/24 12:27 Pulse Ox 98 03/13/24 12:27 Oxygen Delivery Method Room Air 03/13/24 12:27 BMI result Body Mass Index 30.2 Tobacco/Smoking Status: Tobacco use Status Tobacco use date assessed 03/13/24 03/13/24 12:28 Patient Tobacco Use Status Never used Tobacco 03/13/24 12:28 e-Cigarette/Vaping Use Never Used 03/13/24 12:28 Thrive Assessment: Date of Thrive Assessment Date Thrive assessed 01/13/24 03/13/24 12:28 Const General: no acute distress Eyes General: appearance normal, both eyes and all related structures Neck Neck: Yes supple Resp Effort & Inspection: normal respiratory effort Auscultation: clear to auscultation bilaterally Cardio Rhythm: regular rhythm Heart sounds: S1 normal heart sound present and S2 normal heart sound present GI Inspection: Yes normal to inspection Palpation (GI): Soft to palpation Percussion: Yes normal to percussion Assessment and Plan Assessment & Plan (1) Graves disease: Code(s): E05.00 - Thyrotoxicosis with diffuse goiter without thyrotoxic crisis or storm Plan: Continue 5 mg of methimazole check free T3 and T4 in 2 weeks, referred to endocrinology (2) Hyperthyroidism: Code(s): E05.90 - Thyrotoxicosis, unspecified without thyrotoxic crisis or storm (3) HTN (hypertension): Code(s): I10 - Essential (primary) hypertension Plan: Increase losartan to 50 mg a day, low-sodium diet regular physical activity weight loss discussed with the patient follow-up in 1 month Orders: Orders Triiodothyronine T3 Free 2 Weeks E05.00 - Thyrotoxicosis with diffuse goiter without thyrotoxic crisis or storm, E05.90 - Thyrotoxicosis, unspecified without thyrotoxic crisis or storm Free T4 (Free Thyroxine) 2 Weeks E05.00 - Thyrotoxicosis with diffuse goiter without thyrotoxic crisis or storm, E05.90 - Thyrotoxicosis, unspecified without thyrotoxic crisis or storm Referrals Endocrinology Referral E05.00 - Thyrotoxicosis with diffuse goiter without thyrotoxic crisis or storm Medications: New losartan 50 mg PO DAILY 90 tabs 0RF Coding Level of Care Code Est Pt Level 3 (87431) Diagnoses Graves disease E05.00 Hyperthyroidism E05.90 HTN (hypertension) I10
== END 2024-03-13 13:04 | disposition home or self-care (01) ==
PROVIDERS: PCP Internal Medicine; Visit Provider Internal Medicine
DX: E05.00 Thyrotoxicosis with diffuse goiter without thyrotoxic crisis or storm (principal); E05.90 Thyrotoxicosis, unspecified without thyrotoxic crisis or storm; I10 Essential (primary) hypertension
CPT/HCPCS: 99213

== ENCOUNTER 2024-04-26 11:19 | Outpatient (REF) | payer OTHER, SELFPAY ==
--- NOTE | ~2024-04-26 | CT_ITS ---
EXAMINATION: CT ABDOMEN AND PELVIS WITHOUT AND WITH CONTRAST CLINICAL INFORMATION: Microscopic hematuria. COMPARISON: None available. TECHNIQUE: Multidetector volumetric imaging was performed of the abdomen and pelvis before and after the IV administration of 85 mL of Omnipaque 350 intravenous contrast. Sagittal and coronal reformatted images were obtained on the technologist's workstation. This CT examination was performed using dose optimization techniques as appropriate, variously including the following: *Automated exposure control *Adjustment of mA and/or kV according to patient size (this includes techniques or standardized protocols for targeted exams where dose is matched to indication/reason for exam; i.e. extremities or head) *Use of iterative reconstruction technique DLP: 586 mGy-cm FINDINGS: LUNG BASES: The visualized lung bases are unremarkable. LIVER, GALLBLADDER, AND BILIARY TREE: The liver is normal in size, shape, and attenuation. In the right lobe of the liver there is a 2.1 cm peripheral mass seen that has CT characteristics of a hemangioma with peripheral filling (7:38). Calcified granuloma is present in the left lobe of the liver No other focal hepatic lesion or biliary ductal dilatation is present. The gallbladder is unremarkable with no evidence of radiopaque gallstones, gallbladder wall thickening, or obvious pericholecystic inflammatory changes. PANCREAS: Unremarkable. SPLEEN: Unremarkable. ADRENAL GLANDS: Unremarkable. KIDNEYS AND URETERS: The kidneys are normal in size, shape, and attenuation. There is a left-sided 0.9 x 1.2 cm nonobstructing renal pelvic stone present which measures 1500 Hounsfield units and is 9.9 cm from the posterior axillary line. No hydronephrosis, hydroureter, or right-sided or ureteral calculi seen. There is a 0.7 cm cortical benign right angiomyolipoma along with a 0.3 cm left lower pole benign angiomyolipoma which need no additional imaging or follow-up. These were the echogenic masses seen at the time of the prior renal ultrasound. No suspicious renal masses are seen. Pelvicalyceal systems cannot be adequately evaluated as this was not ordered as a CT urogram and the collecting systems are not filled with contrast. No perinephric stranding. BLADDER: Empty with a symmetrically thickened wall without calculi. GASTROINTESTINAL TRACT: The small and large bowel are unremarkable. The appendix is not identified but there is no evidence of appendicitis. ABDOMINAL WALL: No significant hernia is appreciated. LYMPH NODES: No retroperitoneal lymphadenopathy. VASCULAR: Unremarkable. PELVIC VISCERA: Unremarkable. OSSEOUS STRUCTURES: Unremarkable. CT/CT abdomen pelvis wo/w IV con IMPRESSION: 1. A 1.2 cm nonobstructing left renal pelvic stone. 2. 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 MRI could be performed for confirmation. 3. 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 Fleischner guidelines were followed.
[2024-04-26] MEDS: iohexoL 350 MG/ML 100 ML INFUS..BTL IV (11:41)
[2024-04-27 09:22] LABS: Creatinine POC 0.7 mg/dL (0.5-1.4); GFR POC > 60
== END 2024-04-26 11:20 | disposition home or self-care (01) ==
LOC: HO.CT 11:19
PROVIDERS: PCP Internal Medicine; Visit Provider Internal Medicine
DX: R31.29 Other microscopic hematuria (principal); N28.89 Other specified disorders of kidney and ureter
CPT/HCPCS: 74178; 82565; Q9967

== ENCOUNTER 2024-06-03 07:16 | Outpatient (REF) | payer OTHER, SELFPAY ==
[2024-06-03 12:06] LABS: Free T4 (Free Thyroxine) 1.24 ng/dL (0.71-1.85); TSH reflex Free T4 < 0.01 uIU/mL (0.32-4.0)
[2024-06-04 09:43] LABS: Triiodothyronine T3 Free 5.2 pg/mL (2.3-4.2)
== END 2024-06-03 07:17 | disposition home or self-care (01) ==
LOC: HO.HMGCLDS 07:16
PROVIDERS: PCP Internal Medicine; Visit Provider Internal Medicine
DX: E05.00 Thyrotoxicosis with diffuse goiter without thyrotoxic crisis or storm (principal); E05.90 Thyrotoxicosis, unspecified without thyrotoxic crisis or storm; E78.5 Hyperlipidemia, unspecified; D64.9 Anemia, unspecified; I10 Essential (primary) hypertension
CPT/HCPCS: 36415; 84439; 84443; 84481

== ENCOUNTER 2024-08-28 11:03 | Outpatient (AMB) | payer OTHER, SELFPAY ==
--- NOTE | 2024-08-28 11:05 | MHC.OFFVIS ---
Intake Visit Reasons: renal pelvic stone Intake Note: Patient is present for RENAL PELVIC STONE Urology Medication:NONE Antibiotic Allergy:NONE Blood Thinner:NONE Casino Attendant Required: No Allergies Seasonal Allergies Allergy (Mild, Verified 09/01/24 10:02) unknown [place] fruit Allergy (Severe, Uncoded 09/01/24 10:02) Hives HPI Comments Details: Tawanna is a 54-year-old female with history of kidney stones. She is here for further evaluation and stone management. She has occasional left flank pain denies frequent UTIs. Reviewed imaging CT scan-04/26/2024. I have reviewed treatment options to include ESWL.Discussed risks to include but not limited to, blood in the urine, bruising to the skin, kidney hematoma, possible need for another procedure if a stone fragment obstructs the ureter while passing, possible need to repeat procedure if stone is not completely fragmented. CTAP-04/26/2024--. A 1.2 cm nonobstructing left renal pelvic stone. 3. 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 PFSH Medical History Mammogram declined Annual physical exam HTN (hypertension) Enlarged thyroid Surgical History Hx of colonoscopy Hx of appendectomy Family History Father No problems noted. Mother Hypertension Social History Housing: House Patient Tobacco Use Status: Never used Tobacco e-Cigarette/Vaping Use: Never Used service: No Current occupational status: employed Cognitive needs: No Hearing needs: No Vision needs: No Review of Systems Const All systems reviewed & are unremarkable except as noted in HPI and below Reports no additional complaints Eyes Reports no additional complaints ENT Reports no additional complaints Card Reports no additional complaints Resp Reports no additional complaints GI Reports no additional complaints Reports as per HPI Musc Reports no additional complaints Skin/Breast Reports system reviewed and no additional complaints, except as documented Neuro Reports no additional complaints Psych Reports no additional complaints Endo Reports no additional complaints Lobito/Lymph Reports no additional complaints Aller/Immun Reports no additional complaints Physical Exam Const General: cooperative, healthy appearing and no acute distress Orientation/consciousness: patient oriented x3 HEENT Head: Yes normal to inspection, Yes normocephalic and Yes atraumatic Eyes Conjunctivae: conjunctivae normal Neck Neck: Yes normal visual inspection and Yes trachea midline Chest Chest palpation & inspection: normal inspection of the chest Resp Effort & Inspection: normal respiratory effort Cardio Rate: regular rate GI Inspection: Yes normal to inspection Skin General skin exam: no rashes or lesions noted Neuro General: patient oriented x3 Extrem General: No edema Psych Appearance: grossly normal Results AMB Urinalysis, Automated UA Leukoctes 15 Addie/uL Last Edit by BJ Enamorado on 08/28/24 11:24 UA Nitrite Negative Last Edit by BJ Enamorado on 08/28/24 11:24 UA Urobilinogen 0.2 mg/dL Last Edit by BJ Enamorado on 08/28/24 11:24 UA Protein 0 mg/dL Last Edit by BJ Enamorado on 08/28/24 11:24 UA pH 6.0 Last Edit by Chad Villanueva CCM on 08/28/24 11:24 UA Blood 0 Eduar/uL Last Edit by BJ Enamorado on 08/28/24 11:24 UA Specific [place] 1.015 Last Edit by BJ Enamorado on 08/28/24 11:24 UA Ketone Negative Last Edit by Chad Villanueva CCM on 08/28/24 11:24 UA Bilirubin 0 mg/dL Last Edit by BJ Enamorado on 08/28/24 11:24 UA Glucose 0 mg/dL Last Edit by Chad Villanueva CCM on 08/28/24 11:24 Results Reviewed Results Reviewed: Laboratory Last Values Urine pH (Auto) 6.0 08/28/24 11:23 Specific [place] (Auto) 1.015 08/28/24 11:23 Urine Protein (Auto) 0 mg/dL 08/28/24 11:23 Glucose (UA)(Auto) 0 mg/dL 08/28/24 11:23 Urine Ketones (Auto) Negative 08/28/24 11:23 Urine Blood (Auto) 0 Eduar/uL 08/28/24 11:23 Urine Nitrite (Auto) Negative 08/28/24 11:23 Urine Bilirubin (Auto) 0 mg/dL 08/28/24 11:23 Urine Urobilinogen (Auto) 0.2 mg/dL 08/28/24 11:23 Leukocyte Esterase (Auto) 15 Addie/uL 08/28/24 11:23 Date of Service: 04/26/24 CT ABDOMEN AND PELVIS WITHOUT AND WITH CONTRAST CLINICAL INFORMATION: Microscopic hematuria. COMPARISON: None available. TECHNIQUE: Multidetector volumetric imaging was performed of the abdomen and pelvis before and after the IV administration of 85 mL of Omnipaque 350 intravenous contrast. Sagittal and coronal reformatted images were obtained on the technologist's workstation. This CT examination was performed using dose optimization techniques as appropriate, variously including the following: *Automated exposure control *Adjustment of mA and/or kV according to patient size (this includes techniques or standardized protocols for targeted exams where dose is matched to indication/reason for exam; i.e. extremities or head) *Use of iterative reconstruction technique DLP: 586 mGy-cm FINDINGS: LUNG BASES: The visualized lung bases are unremarkable. LIVER, GALLBLADDER, AND BILIARY TREE: The liver is normal in size, shape, and attenuation. In the right lobe of the liver there is a 2.1 cm peripheral mass seen that has CT characteristics of a hemangioma with peripheral filling (7:38). Calcified granuloma is present in the left lobe of the liver No other focal hepatic lesion or biliary ductal dilatation is present. The gallbladder is unremarkable with no evidence of radiopaque gallstones, gallbladder wall thickening, or obvious pericholecystic inflammatory changes. PANCREAS: Unremarkable. SPLEEN: Unremarkable. ADRENAL GLANDS: Unremarkable. KIDNEYS AND URETERS: The kidneys are normal in size, shape, and attenuation. There is a left-sided 0.9 x 1.2 cm nonobstructing renal pelvic stone present which measures 1500 Hounsfield units and is 9.9 cm from the posterior axillary line. No hydronephrosis, hydroureter, or right-sided or ureteral calculi seen. There is a 0.7 cm cortical benign right angiomyolipoma along with a 0.3 cm left lower pole benign angiomyolipoma which need no additional imaging or follow-up. These were the echogenic masses seen at the time of the prior renal ultrasound. No suspicious renal masses are seen. Pelvicalyceal systems cannot be adequately evaluated as this was not ordered as a CT urogram and the collecting systems are not filled with contrast. No perinephric stranding. BLADDER: Empty with a symmetrically thickened wall without calculi. GASTROINTESTINAL TRACT: The small and large bowel are unremarkable. The appendix is not identified but there is no evidence of appendicitis. ABDOMINAL WALL: No significant hernia is appreciated. LYMPH NODES: No retroperitoneal lymphadenopathy. VASCULAR: Unremarkable. PELVIC VISCERA: Unremarkable. OSSEOUS STRUCTURES: Unremarkable. IMPRESSION: 1. A 1.2 cm nonobstructing left renal pelvic stone. 2. 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 MRI could be performed for confirmation. 3. 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 Assessment & Plan Assessment & Plan (1) Kidney stone on left side: Code(s): N20.0 - Calculus of kidney Category: Medical (2) Renal angiomyolipoma: Code(s): D17.71 - Benign lipomatous neoplasm of kidney Category: Medical Plan Left ESWL Orders: Orders AMB Urinalysis Automated 08/28/24 Z13.9 - Encounter for screening, unspecified Patient Instructions: The patient had an opportunity to ask questions regarding treatment plan. The patient expressed understanding and agreement with the above treatment plan. The patient is aware they should contact our office by phone for worsening of their current condition or the appearance of new symptoms. Compliance is encouraged with any medications and followup testing that is ordered. It is a privilege to be allowed the opportunity to participate in the urologic care of your patient. If you have any questions or concerns regarding treatment for the above conditions please do not hesitate to contact me. The office telephone contact is [phone]. This note is constructed in part using voice recognition software. While every effort has been made to ensure accuracy systems software developer errors may have been included. Yours sincerely, Farrah Lincoln MD Coding Level of Care Code New Pt Level 4 (68429) Diagnoses Kidney stone on left side N20.0 Renal angiomyolipoma D17.71
== END 2024-08-28 11:57 | disposition home or self-care (01) ==
PROVIDERS: PCP Internal Medicine; Visit Provider Urology
DX: N20.0 Calculus of kidney (principal); D17.71 Benign lipomatous neoplasm of kidney
CPT/HCPCS: 99204

== ENCOUNTER → 2024-08-28 11:03 | Outpatient (BNVA) | payer OTHER, SELFPAY | PROVIDERS: PCP Internal Medicine; Visit Provider Urology | DX: N20.0 Calculus of kidney (principal); D17.71 Benign lipomatous neoplasm of kidney | CPT/HCPCS: 81003 ==

== ENCOUNTER 2024-09-01 09:54 | Outpatient (AMB) | payer OTHER, SELFPAY ==
[2024-09-01 09:57] VITALS: BP 138/84; PULSE 67; O2SAT 97; BMI 31.5
--- NOTE | 2024-09-01 09:57 | MHC.PC.OV ---
Vital Signs 09/01/24 09:57 Height 5 ft 2 in Weight 172 lb BMI 31.5 BP 138/84 Blood Pressure Location Lt brachial Position Sitting Pulse 67 Pulse Source Pulse Oximeter Pulse Oximetry (%) 97 Oxygen Delivery Method Room Air Intake Visit Reasons: Office visit Intake Note: Pt is here today for a follow up visit. Allergies Seasonal Allergies Allergy (Mild, Verified 09/01/24 10:02) unknown [place] fruit Allergy (Severe, Uncoded 09/01/24 10:02) Hives Medication List - Last Reconciled 09/01/24 by Carleen De Jesus MD cetirizine 10 mg PO DAILY hydrocortisone 2.5% (Proctosol HC) 1 appl [place] BID-QID PRN losartan 25 mg PO DAILY losartan 50 mg PO DAILY methimazole 5 mg PO DAILY Tobacco use date assessed: 09/01/24 Dental Screening Dental Screen Date: 03/13/24 HPI Office visit HPI Details Patient presents for the follow-up on hypertension and hyperthyroidism. She follows up with [facility] methimazole dose was increased to 10 mg 6 weeks ago. Patient complains of gaining weight despite decreasing caloric intake and exercising regularly for at least 6 months. [facility]LY [facility] Medical History (Updated 09/01/24 @ 11:02 by Carleen De Jesus MD) Mammogram declined Annual physical exam HTN (hypertension) Enlarged thyroid Surgical History Hx of colonoscopy Hx of appendectomy Family History Father No problems noted. Mother Hypertension Social History Housing: House Patient Tobacco Use Status: Never used Tobacco e-Cigarette/Vaping Use: Never Used service: No Current occupational status: employed Cognitive needs: No Hearing needs: No Vision needs: No Questionnaire PHQ-9 Over the last 2 weeks, how often have you been bothered by any of the following problems? 1. Little interest or pleasure in doing things: several days 2. Feeling down, depressed, or hopeless: not at all 3. Trouble falling or staying asleep, or sleeping too much: not at all 4. Feeling tired or having little energy: several days 5. Poor appetite or overeating: not at all 6. Feeling bad about yourself - or that you are a failure or have let yourself or your family down: not at all 7. Trouble concentrating on things, such as reading the newspaper or watching television: not at all 8. Moving or speaking so slowly that other people could have noticed. Or the opposite - being so fidgety or restless that you have been moving around a lot more than usual: not at all 9. Thoughts that you would be better off or of hurting yourself in some way: not at all Total score: 2 Depression Screening Interpretation: Negative Depression Screening Done: Yes 12699 - PHQ-9 Billing: Yes Source: Developed by Drs. Amandeep Montero, Lara Lucas, Patrick Roberts and colleagues, with an educational elmer from [employer]. Thrive Questionnaire Date Thrive assessed: 09/01/24 I am a: Patient What is your living situation today?: I have a steady place to live Within the past 12 months, did the food you bought not last and you didn't have the money to get more?: Often true Within the past 12 months, did you worry whether your food would run out before you got money to buy more?: Sometimes True Do you have trouble paying for medicines?: No Do you have trouble getting transportation to medical appointments?: No Do you have trouble paying your heating and electricity bill?: No Do you have trouble taking care of your child, family member or friend?: No Do you have trouble with day-to-day activities such as bathing, preparing meals, shopping, managing finances, etc.?: No Are you currently unemployed and looking for a job?: No Are you interested in more education?: I choose not to answer this question Please select the resources that you would like help with: None Currently or been in a relationship where the following occur: I choose not to answer THRIVE Score: 2 AUDIT C Alcohol Use Questionnaire (AUDIT-C) 1. How often do you have a drink containing alcohol?: Never Total Score: 0 AGUSTO-7 AMB Questionnaire AGUSTO-7 Date AGUSTO - 7 assessed: 09/01/24 Feeling nervous, anxious, or on edge: 0 = Not at all Not being able to stop or control worryin = Not at all Worrying too much about different things: 0 = Not at all Trouble relaxin = Not at all Being so restless that it is hard to sit still: 0 = Not at all Becoming easily annoyed or irritable: 0 = Not at all Feeling afraid as if something awful might happen: 0 = Not at all Total AGUSTO-7 score (0-4 normal; 5-9 mild; 10-14 moderate; 15-21 severe): 0 Source: Developed by Drs. Amandeep Montero, Lara Lucas, Patrick Roberts and colleagues, with an educational elmer from [employer]. AGUSTO-7 Assessment Billing AGUSTO-7 Assessment Tool: AGUSTO-7 Assessment 76826 Review of Systems Const All systems reviewed & are unremarkable except as noted in HPI and below Eyes Reports no additional complaints ENT Reports no additional complaints Card Reports no additional complaints Resp Reports no additional complaints GI Reports no additional complaints Reports no additional complaints Physical exam (Primary Care) Vital Signs: Last Vital Signs Pulse 67 09/01/24 09:57 BP 138/84 09/01/24 09:57 Pulse Ox 97 09/01/24 09:57 Oxygen Delivery Method Room Air 09/01/24 09:57 BMI result Body Mass Index 31.5 Tobacco/Smoking Status: Tobacco use Status Tobacco use date assessed 09/01/24 09/01/24 10:04 Patient Tobacco Use Status Never used Tobacco 09/01/24 09:58 e-Cigarette/Vaping Use Never Used 09/01/24 09:58 PHQ-9: PHQ-9 Score PHQ-9: Total score 2 09/01/24 10:39 Depression Screening Interpretation: Negative Thrive Assessment: Date of Thrive Assessment Date Thrive assessed 09/01/24 09/01/24 10:04 Currently or been in a relationship where the following occur: I choose not to answer Const General: no acute distress HENMT Head: Yes normal to inspection Mouth: Normal oral and palatal mucosa present Eyes General: appearance normal, both eyes and all related structures Resp Effort & Inspection: normal respiratory effort Auscultation: clear to auscultation bilaterally Cardio Rhythm: regular rhythm Heart sounds: S1 normal heart sound present and S2 normal heart sound present GI Inspection: Yes normal to inspection Palpation (GI): Soft to palpation Percussion: Yes normal to percussion Auscultation: normal bowel sounds Coding Level of Care Code Est Pt Level 4 (68676) Complex EM visit Add On G2211 Diagnoses HTN (hypertension) I10 Hyperlipemia E78.5 Hyperthyroidism E05.90 Graves disease E05.00 BMI 31.0-31.9,adult Z68.31 Additional Codes AGUSTO-7 Assessment Billing - AGUSTO-7 Assessment Tool: AGUSTO-7 Assessment 60826 ([id number]) Assessment & Plan Assessment & Plan (1) HTN (hypertension): Code(s): I10 - Essential (primary) hypertension Category: Medical Plan: CHANGE LOSARTAN TO VALSARTAN WITH HYDROCHLOROTHIAZIDE 320/12.5, check comprehensive panel in 1 week follow-up in 1 month (2) Hyperlipemia: Code(s): E78.5 - Hyperlipidemia, unspecified Category: Medical Plan: Continue low-cholesterol diet check lipid profile (3) Hyperthyroidism: Comment: Follows up with [facility] endocrinology Code(s): E05.90 - Thyrotoxicosis, unspecified without thyrotoxic crisis or storm Category: Medical Plan: Check TSH on 10 mg of methimazole follow-up with endocrinology (4) Graves disease: Comment: Positive nuclear scan 05/2024, follows up with [facility] endocrinology Code(s): E05.00 - Thyrotoxicosis with diffuse goiter without thyrotoxic crisis or storm Category: Medical Plan: As above (5) BMI 31.0-31.9,adult: Code(s): Z68.31 - Body mass index [BMI] 31.0-31.9, adult Category: Medical Plan: Start Wegovy 0.25 mg weekly for the 1st month recheck weight in 1 month, continue decreasing caloric intake increasing physical activity to facilitate weight loss Orders: Orders Lipid Panel 1 Week E05.90 - Thyrotoxicosis, unspecified without thyrotoxic crisis or storm, E78.5 - Hyperlipidemia, unspecified, I10 - Essential (primary) hypertension TSH reflex Free T4 1 Week E05.90 - Thyrotoxicosis, unspecified without thyrotoxic crisis or storm, E78.5 - Hyperlipidemia, unspecified, I10 - Essential (primary) hypertension Complete Blood Count Auto Diff 1 Week E05.90 - Thyrotoxicosis, unspecified without thyrotoxic crisis or storm, E78.5 - Hyperlipidemia, unspecified, I10 - Essential (primary) hypertension Comprehensive [place]. Panel Fast 1 Week E05.90 - Thyrotoxicosis, unspecified without thyrotoxic crisis or storm, E78.5 - Hyperlipidemia, unspecified, I10 - Essential (primary) hypertension Triiodothyronine T3 Free 1 Week E05.90 - Thyrotoxicosis, unspecified without thyrotoxic crisis or storm, E78.5 - Hyperlipidemia, unspecified, I10 - Essential (primary) hypertension Medications: New valsartan-hydrochlorothiazide 320-12.5 mg 1 tab PO DAILY 90 tabs 0RF Wegovy (semaglutide (weight loss)) administer weeks 1 through 4 of therapy 0.25 mg (0.5 mL) subcut QWEEK 2 mL 0RF NS Changed From methimazole 5 mg PO DAILY 90 tabs 0RF To methimazole 10 mg (2 x 5 mg) PO DAILY 90 tabs 0RF
== END 2024-09-01 11:03 | disposition home or self-care (01) ==
LOC: HO.HMCC 09:55
PROVIDERS: PCP Internal Medicine; Visit Provider Internal Medicine
DX: I10 Essential (primary) hypertension (principal); E78.5 Hyperlipidemia, unspecified; E05.90 Thyrotoxicosis, unspecified without thyrotoxic crisis or storm; E05.00 Thyrotoxicosis with diffuse goiter without thyrotoxic crisis or storm; Z68.31 Body mass index [BMI] 31.0-31.9, adult

== ENCOUNTER → 2024-09-01 09:54 | Outpatient (BNVA) | payer OTHER, SELFPAY | PROVIDERS: PCP Internal Medicine; Visit Provider Internal Medicine | DX: I10 Essential (primary) hypertension (principal); E78.5 Hyperlipidemia, unspecified; E05.00 Thyrotoxicosis with diffuse goiter without thyrotoxic crisis or storm | CPT/HCPCS: 96127 ==

== ENCOUNTER 2024-09-09 07:08 | Outpatient (REF) | payer OTHER, SELFPAY ==
[2024-09-09 11:15] LABS: MANUAL DIFF FLAG NO
[2024-09-09 11:25] LABS: Basophils Percent Auto 0.3 % (0-2); Eosinophils Percent Auto 0.5 % (0-4); Hematocrit 39.6 % (37.0-47.0); Imm Gran Abs Auto 0.01 X10*3/uL (0.00-0.03); Imm Gran Pct Auto 0.2 % (0.0-0.4); Lymphocytes Absolute Auto 2.4 X10*3/uL (1.2-4.9); Lymphocytes Percent Auto 41.2 % (20-40); Mean Corpuscular HGB Conc 32.8 g/dl (31.0-35.0); Mean Corpuscular Volume 85.3 fL (80.0-98.0); Mean Platelet Volume 10.8 fL (9.4-12.3); Monocytes Absolute Auto 0.5 X10*3/uL (0.1-1.2); Monocytes Percent Auto 8.5 % (2-11); Neutrophils Absolute Auto 2.8 x10*3/uL (2.0-8.3); Neutrophils Percent Auto 49.3 % (45-73); Platelet Count 277 X10*3/uL (160-400); Red Blood Count 4.64 X10*6/uL (4.20-5.50); Red Cell Distribution Width 14.3 % (11.0-16.0); White Blood Count 5.8 X10*3/uL (4.8-10.8)
[2024-09-09 11:37] LABS: Alanine Aminotransferase 28 U/L (0-31); Albumin Level 4.1 g/dL (3.5-5.0); Alkaline Phosphatase 79 U/L (39-117); Anion Gap 15 (12-20); Aspartate Amino Transferase 34 U/L (5-31); Bilirubin Total 0.3 mg/dL (0.0-1.0); Blood Urea Nitrogen 17 mg/dL (9-16); Calcium 9.6 mg/dL (8.4-10.2); Carbon Dioxide 25 mmol/L (22-29); Chloride 105 mmol/L (96-108); Cholesterol 238 mg/dL (<200); Estimated Glomerular Filt Rate 59; Glucose Fasting 89 mg/dL (60-99); HDL Cholesterol 73 mg/dL (>40); LDL Cholesterol Calculated 151 mg/dL (<100); Potassium 4.1 mmol/L (3.3-5.1); Sodium 141 mmol/L (135-145); Total Protein 7.6 g/dL (6.5-8.0); Triglycerides 70 mg/dL (<150)
[2024-09-09 11:55] LABS: TSH reflex Free T4 3.67 uIU/mL (0.32-4.0)
[2024-09-11 09:48] LABS: Triiodothyronine T3 Free 3.8 pg/mL (2.3-4.2)
== END 2024-09-09 07:09 | disposition home or self-care (01) ==
LOC: HO.HMGCLDS 07:08
PROVIDERS: PCP Internal Medicine; Visit Provider Internal Medicine
DX: E05.90 Thyrotoxicosis, unspecified without thyrotoxic crisis or storm (principal); E78.5 Hyperlipidemia, unspecified; I10 Essential (primary) hypertension
CPT/HCPCS: 36415; 80053; 80061; 84443; 84481; 85025

== ENCOUNTER 2024-10-02 14:00 | Outpatient (AMB) | payer OTHER, SELFPAY ==
[2024-10-02 14:05] VITALS: BP 130/82; PULSE 78; O2SAT 99; BMI 32.4
--- NOTE | 2024-10-02 14:05 | MHC.PC.OV ---
Vital Signs 10/02/24 14:05 Height 5 ft 2 in Weight 177 lb BMI 32.4 BP 130/82 Blood Pressure Location Lt brachial Position Sitting Pulse 78 Pulse Source Pulse Oximeter Pulse Oximetry (%) 99 Oxygen Delivery Method Room Air Intake Visit Reasons: 1m follow up Intake Note: Pt is here today for her 1mo. f/u Allergies Seasonal Allergies Allergy (Mild, Verified 10/02/24 14:05) unknown [place] fruit Allergy (Severe, Uncoded 10/02/24 14:05) Hives Medication List - Last Reconciled 10/02/24 by Carleen De Jesus MD cetirizine 10 mg PO DAILY hydrocortisone 2.5% (Proctosol HC) 1 appl [place] BID-QID PRN methimazole 10 mg (2 x 5 mg) PO DAILY Mounjaro (tirzepatide) 2.5 mg (0.5 mL) subcut QWEEK NS valsartan-hydrochlorothiazide 320-12.5 mg 1 tab PO DAILY Wegovy (semaglutide (weight loss)) 0.25 mg (0.5 mL) subcut QWEEK NS Tobacco use date assessed: 10/02/24 Dental Screening Dental Screen Date: 10/02/24 Did you have a dental visit in the last 12 months?: No Did you have a dental problem in the last 6 months where you did not have access to dental care?: No Was dental information given to patient?: Patient declined HPI 1m follow up HPI Details Patient presents for the follow-up on hypertension PFSH Medical History (Updated 10/02/24 @ 14:50 by Carleen De Jesus MD) Anemia Graves disease Nephrolithiasis HTN (hypertension) Surgical History Hx of colonoscopy Hx of appendectomy Family History Father No problems noted. Mother Hypertension Social History Housing: House Patient Tobacco Use Status: Never used Tobacco e-Cigarette/Vaping Use: Never Used service: No Current occupational status: employed Cognitive needs: No Hearing needs: No Vision needs: No Questionnaire Thrive Questionnaire Date Thrive assessed: 09/01/24 I am a: Patient What is your living situation today?: I have a steady place to live Within the past 12 months, did the food you bought not last and you didn't have the money to get more?: Often true Within the past 12 months, did you worry whether your food would run out before you got money to buy more?: Sometimes True Do you have trouble paying for medicines?: No Do you have trouble getting transportation to medical appointments?: No Do you have trouble paying your heating and electricity bill?: No Do you have trouble taking care of your child, family member or friend?: No Do you have trouble with day-to-day activities such as bathing, preparing meals, shopping, managing finances, etc.?: No Are you currently unemployed and looking for a job?: No Are you interested in more education?: I choose not to answer this question Please select the resources that you would like help with: None Currently or been in a relationship where the following occur: I choose not to answer THRIVE Score: 2 AGUSTO-7 AMB Questionnaire AGUSTO-7 Date AGUSTO - 7 assessed: 09/01/24 Source: Developed by Drs. Amandeep Montero, Lara Lucas, Patrick Roberts and colleagues, with an educational elmer from [employer]. Review of Systems Const All systems reviewed & are unremarkable except as noted in HPI and below Eyes Reports no additional complaints ENT Reports no additional complaints Card Reports no additional complaints Resp Reports no additional complaints GI Reports no additional complaints Reports no additional complaints Physical exam (Primary Care) Vital Signs: Last Vital Signs Pulse 78 10/02/24 14:05 BP 154/92 H 10/02/24 14:05 Pulse Ox 99 10/02/24 14:05 Oxygen Delivery Method Room Air 10/02/24 14:05 BMI result Body Mass Index 32.4 Tobacco/Smoking Status: Tobacco use Status Tobacco use date assessed 10/02/24 10/02/24 14:09 Patient Tobacco Use Status Never used Tobacco 10/02/24 14:09 e-Cigarette/Vaping Use Never Used 10/02/24 14:09 Thrive Assessment: Date of Thrive Assessment Date Thrive assessed 09/01/24 10/02/24 14:09 Currently or been in a relationship where the following occur: I choose not to answer Const General: no acute distress HENMT Head: Yes normal to inspection Mouth: Normal oral and palatal mucosa present Neck Neck: Yes supple Resp Effort & Inspection: normal respiratory effort Auscultation: clear to auscultation bilaterally Cardio Rhythm: regular rhythm Heart sounds: S1 normal heart sound present and S2 normal heart sound present GI Inspection: Yes normal to inspection Palpation (GI): Soft to palpation Percussion: Yes normal to percussion Auscultation: normal bowel sounds Coding Level of Care Code Est Pt Level 4 (52088) Diagnoses Graves disease E05.00 Hyperlipemia E78.5 Anemia D64.9 HTN (hypertension) I10 Nephrolithiasis N20.0 Overweight E66.3 Assessment & Plan Assessment & Plan (1) Graves disease: Comment: Positive nuclear scan 05/2024, follows up with [facility] endocrinology Code(s): E05.00 - Thyrotoxicosis with diffuse goiter without thyrotoxic crisis or storm Category: Medical Plan: Continue methimazole follow-up with endocrinology (2) Hyperlipemia: Code(s): E78.5 - Hyperlipidemia, unspecified Category: Medical Plan: Start pravastatin 20 mg a day continue low-cholesterol diet (3) Anemia: Comment: Iron deficiency, negative colonoscopy 05/23 Code(s): D64.9 - Anemia, unspecified Category: Medical Plan: Monitor CBC (4) HTN (hypertension): Code(s): I10 - Essential (primary) hypertension Category: Medical Plan: Continue valsartan with hydrochlorothiazide (5) Nephrolithiasis: Comment: Follows up with Urology Code(s): N20.0 - Calculus of kidney Category: Medical Plan: Follow-up with urology (6) Overweight: Comment: BMI 32.4 10/2024 Code(s): E66.3 - Overweight Category: Medical Plan: DECREASE CALORIC INTAKE INCREASE PHYSICAL ACTIVITY DISCUSSED WITH THE PATIENT SHE WILL TRY Mounjaro 2.5 mg weekly for 3 months. Orders: Orders Comprehensive [place]. Panel Fast 4 Months D64.9 - Anemia, unspecified, E05.00 - Thyrotoxicosis with diffuse goiter without thyrotoxic crisis or storm, E78.5 - Hyperlipidemia, unspecified, I10 - Essential (primary) hypertension TSH reflex Free T4 4 Months D64.9 - Anemia, unspecified, E05.00 - Thyrotoxicosis with diffuse goiter without thyrotoxic crisis or storm, E78.5 - Hyperlipidemia, unspecified, I10 - Essential (primary) hypertension Lipid Panel 4 Months D64.9 - Anemia, unspecified, E05.00 - Thyrotoxicosis with diffuse goiter without thyrotoxic crisis or storm, E78.5 - Hyperlipidemia, unspecified, I10 - Essential (primary) hypertension Complete Blood Count Auto Diff 4 Months D64.9 - Anemia, unspecified, E05.00 - Thyrotoxicosis with diffuse goiter without thyrotoxic crisis or storm, E78.5 - Hyperlipidemia, unspecified, I10 - Essential (primary) hypertension Medications: New Mounjaro (tirzepatide) 2.5 mg (0.5 mL) subcut QWEEK 2 mL 3RF NS pravastatin 20 mg PO DAILY 90 tabs 1RF Refilled valsartan-hydrochlorothiazide 320-12.5 mg 1 tab PO DAILY 90 tabs 0RF
== END 2024-10-02 14:51 | disposition home or self-care (01) ==
PROVIDERS: PCP Internal Medicine; Visit Provider Internal Medicine
DX: E05.00 Thyrotoxicosis with diffuse goiter without thyrotoxic crisis or storm (principal); E78.5 Hyperlipidemia, unspecified; D64.9 Anemia, unspecified; I10 Essential (primary) hypertension; N20.0 Calculus of kidney; E66.3 Overweight

== ENCOUNTER 2024-10-04 07:41 | Day surgery (SDC) | payer OTHER, SELFPAY ==
[2024-10-02 14:04] VITALS: BMI 31.5
--- NOTE | 2024-10-03 09:53 | HO.ANESPROP2 ---
Documented by User: Elizabeth Ward NP 10/03/24 09:54 HPI - Anesthesia Eval Consult details Narrative: 54yo F for Left ESWL Anesthesia Pre-Procedure Meds Is the patient on any of the following meds?: GLP1/DPP4 PMFSH Active Problems Active Problems: All Active Problems Overweight (Acute) Renal angiomyolipoma (Acute) Kidney stone on left side (Acute) BMI 31.0-31.9,adult (Acute) Nephrolithiasis (Acute) Graves disease (Acute) Left renal mass (Acute) Hyperthyroidism (Acute) Microscopic hematuria (Acute) Rash of face (Acute) Rash (Acute) Hyperlipemia (Acute) Anemia (Acute) Breast lump in upper outer quadrant (Acute) Mammogram declined (Acute) Annual physical exam (Acute) HTN (hypertension) (Acute) Past Medical History Medical History (Updated 10/02/24 @ 14:50 by Carleen De Jesus MD) Anemia Graves disease Nephrolithiasis HTN (hypertension) Family History Family History Father No problems noted. Mother Hypertension Family history of problems with anesthesia: No Surgical History Surgical History Hx of colonoscopy Hx of appendectomy History of Problems with Anesthesia: No Social History Social History Housing: House Patient Tobacco Use Status: Never used Tobacco e-Cigarette/Vaping Use: Never Used Use of substances other than those prescribed or required for medical reasons: No Advance Directives: No Advance Directives Information Provided: Yes service: No Current occupational status: employed Cognitive needs: No Hearing needs: No Vision needs: No Meds Allergies Allergy/AdvReac Type Severity Reaction Status Date / Time Seasonal Allergies Allergy Mild unknown Verified 10/02/24 14:05 [place] fruit Allergy Severe Hives Uncoded 10/02/24 14:05 Home Medications ?Medication ?Instructions ?Recorded ?Confirmed ?Last Taken ?Type cetirizine 10 mg tablet 10 mg PO DAILY 01/13/24 10/04/24 Unknown History Exam Height,Weight and Vital Signs: Height 5 ft 2 in Weight 78.018 kg Assessment and Plan Assessment Anesthesia Assessment: Chart Reviewed Final Anesthetic Review Family History of Problems with Anesthesia: No History of Problems with Anesthesia: No Documented by User: Rikki Merino MD 10/04/24 10:03 PMFSH Past Medical History Medical History (Updated 10/02/24 @ 14:50 by Carleen De Jesus MD) Anemia Graves disease Nephrolithiasis HTN (hypertension) Family History Family History Father No problems noted. Mother Hypertension Surgical History Surgical History Hx of colonoscopy Hx of appendectomy Social History Social History Housing: House Patient Tobacco Use Status: Never used Tobacco e-Cigarette/Vaping Use: Never Used Use of substances other than those prescribed or required for medical reasons: No Advance Directives: No Advance Directives Information Provided: Yes service: No Current occupational status: employed Cognitive needs: No Hearing needs: No Vision needs: No Meds Allergies Allergy/AdvReac Type Severity Reaction Status Date / Time Seasonal Allergies Allergy Mild unknown Verified 10/02/24 14:05 [place] fruit Allergy Severe Hives Uncoded 10/02/24 14:05 Home Medications ?Medication ?Instructions ?Recorded ?Confirmed ?Last Taken ?Type cetirizine 10 mg tablet 10 mg PO DAILY 01/13/24 10/04/24 Unknown History Exam Airway Mallampati Class: II TM Dist: <=3cm Neck ROM: Full Loose/Missing/Broken Teeth: No Heart: ok Lungs: ok Assessment and Plan Assessment Anesthesia Assessment: Anesthesia Plan Discussed Final Anesthetic Review NPO: Yes ASA Class: II Final Preanesthetic Review: No Changes in Pt Med Stat, Meds/Allgs Chart Reviewed, Consent Obtained/Reviewed and Anes Risks/Benef Reviewed Patient Risk: Low Procedure Risk: Low Anesthetic Plan Anesthetic Plan: GA and Agree w/ Assess. and Plan Disposition: Standard PACU
[2024-10-04] VITALS (8 sets, daily range): BP systolic 149–169; BP diastolic 73–104; PULSE 48–71; RESP 16–18; TEMP 36.5–37.4; O2SAT 96–99
--- NOTE | ~2024-10-04 | XR_ITS ---
EXAMINATION: XR ABDOMEN KUB CLINICAL INDICATION: Pre Left ESWL. COMPARISON: CT Abdomen pelvis without then with IV contrast 04/26/2024 TECHNIQUE: AP view of the abdomen. FINDINGS: The bowel gas pattern is normal with no evidence of ileus or obstruction. No left lower pole renal stone measuring 1.2 cm. The bones are unremarkable. XR/XR KUB IMPRESSION: Left lower pole renal stone measuring 1.2 cm. Electronically signed by: Abner Hale MD 10/24/2024 11:35 AM EST
[2024-10-04] MEDS: Lactated Ringers 1,000 ML 100 ML IVCONT (09:17)
--- NOTE | 2024-10-04 09:26 | MHC.SHP ---
Pre-Procedural Eval Section A - 24 Hr Update-Section A only Date of Service: 10/04/24 The patient is an INPATIENT: No The patient has been examined within 24 hours of the surgical procedure. The History & Physical has been completed within 30 days and I have reviewed it.: Yes Section B - Complete if H&P > 30 days Chief Complaint: Calculus of kidney Allergies: Allergies Allergy/AdvReac Type Severity Reaction Status Date / Time Seasonal Allergies Allergy Mild unknown Verified 10/02/24 14:05 [place] fruit Allergy Severe Hives Uncoded 10/02/24 14:05 Plan Diagnosis/Plan: Unchanged I have reviewed the history and physical and performed a pertinent physical examination on my patient. No changes have occurred unless specified. Discussed risks to include but not limited to, blood in the urine, bruising to the skin, kidney hematoma, possible need for another procedure if a stone fragment obstructs the ureter while passing, possible need to repeat procedure if stone is not completely fragmented. Left ESWL. Time Spent With Patient Time: Total time managing care of this patient today ____ minutes.
--- NOTE | 2024-10-04 10:59 | W.PM.OPN ---
Operative Note Operative Note Date of Service: 10/04/24 Narrative: PreOperative Diagnosis:? ?Left Renal stone Post Operative Diagnosis:?Left Renal stone Procedure:?Left ESWL Surgeon:?Dr Farrah Lincoln Anesthesia:? General The patient understands there is a risk of bruising or hematoma to the kidney, infection, and stone migration following the procedure and subsequent intervention may be required.? - Imaging 12 x 10 mm stone Procedure: After informed consent was verified the patient was brought to the operating room and placed in a supine position.? Anesthesia was performed per protocol. Safety pause time-out was performed. Imaging was displayed in the room and laterality confirmed. ESWL was performed.?The stone was visualized on both fluoroscopy and ultrasound.? Shockwave lithotripsy was performed, with a maximum rate of 120 hertz. After the first 300 shocks a pause for 3 minutes was completed.? A total of 2500 shocks to a maximum of power of 20with a maximum rate of 120 hertz.?Some fragmentation of the stone was appreciated. The patient tolerated the procedure well and was transferred to the recovery area upon completion. Complications: None
--- NOTE | 2024-10-04 11:55 | PC.NURSE ---
CLINICAL MEDICAL ASSISTANT WITH PATIENT.
== END 2024-10-04 12:01 | disposition home or self-care (01) ==
PROVIDERS: PCP Internal Medicine; Visit Provider Urology
PROC: (CPT 50590; principal; 2024-10-04 09:30)
DX: N20.0 Calculus of kidney (principal); D17.71 Benign lipomatous neoplasm of kidney; I10 Essential (primary) hypertension; D64.9 Anemia, unspecified; E04.9 Nontoxic goiter, unspecified; J30.2 Other seasonal allergic rhinitis; Z79.85 Long-term (current) use of injectable non-insulin antidiabetic drugs; Z79.899 Other long term (current) drug therapy
CPT/HCPCS: 50590; 74018; J0131; J0690; J1940; J2003; J2704; J3010

== ENCOUNTER → 2024-10-04 07:41 | Outpatient (BNV) | payer OTHER, SELFPAY | PROVIDERS: PCP Internal Medicine; Visit Provider Urology | DX: N20.0 Calculus of kidney (principal) | CPT/HCPCS: 50590 ==

== ENCOUNTER → 2024-12-04 10:27 | Outpatient (BNV) | payer OTHER, SELFPAY | PROVIDERS: PCP Internal Medicine; Visit Provider Radiology Diagnostic Radiology | DX: N20.0 Calculus of kidney (principal) | CPT/HCPCS: 76775 ==

== ENCOUNTER 2025-01-04 10:18 | Outpatient (AMB) | payer OTHER, SELFPAY ==
--- NOTE | 2025-01-04 10:40 | MHC.OFFVIS ---
Intake Visit Reasons: RENETTA f/u s/p ESWL Intake Note: Patient is present for ESWL/US Urology Medication:NONE Antibiotic Allergy:NONE Blood Thinner:NONE Account Supervisor Required: No Allergies Seasonal Allergies Allergy (Mild, Verified 01/04/25 10:41) unknown [place] fruit Allergy (Severe, Uncoded 01/04/25 10:41) Hives HPI Comments Details: 01/04/25-- History of Present Illness The patient is a 54-year-old female presenting with nephrolithiasis. In October, she underwent ESWL for a sizable 12 mm kidney stone, which was partially fragmented by the procedure. Following this intervention, about 7 mm of the stone remains. The patient experienced symptomatic relief with the discharge of sand-like particles but the retained fragment necessitates further observation. Her symptoms include urinary frequency, likely related to the residual stone fragment's impact on her urinary tract function. Urinary Symptoms Review - Urinary frequency noted - History of nephrolithiasis - Post-ESWL stone fragmentation and remnant reduction to 7 mm - Observation of sand-like fragments post-procedure Review of Systems Review of Systems Const All systems reviewed & are unremarkable except as noted in HPI and below Reports no additional complaints Eyes Reports no additional complaints ENT Reports no additional complaints Card Reports no additional complaints Resp Reports no additional complaints GI Reports no additional complaints Reports as per HPI Musc Reports no additional complaints Skin/Breast Reports system reviewed and no additional complaints, except as documented Neuro Reports no additional complaints Psych Reports no additional complaints Endo Reports no additional complaints L[place]ito/Lymph Reports no additional complaints Aller/Immun Reports no additional complaints Physical Exam General: Cooperative, healthy appearing and no acute distress Orientation and Consciousness: Patient oriented x3 Head: Yes normal to inspection, Yes normocephalic and Yes atraumatic Eyes: Conjunctivae normal Neck: Yes normal visual inspection and Yes trachea midline Chest: Normal inspection of the chest Respiratory: Normal respiratory effort GI: Normal to inspection : Neuro: Patient oriented x3 Extremities: Skin: Psych: Appearance grossly normal Results - Previous ultrasound revealed a 12 mm kidney stone, partially fragmented to approximately 7 mm post-ESWL. Plan The patient's nephrolithiasis will be managed with serial ultrasounds to monitor the residual stone fragment, with an ultrasound scheduled in six months to assess its status. A 24-hour urine collection through [facility] has been ordered to evaluate the mineral excretion pattern, hendrix in developing preventive dietary strategies. Based on these results, potential nephrology consults may be considered. The patient is advised to bring in any stone fragments for lab analysis at her next visit. Patient was informed and verbally consented to the use of an ambient scribe for clinic note documentation during this visit. Discussion Notes I informed the patient about the residual 7 mm stone fragment following her initial ESWL procedure. We discussed that further ultrasonography is scheduled in six months to ascertain the fragment's status and the potential for spontaneous passage. I explained the significance of the 24-hour urine collection to understand her metabolic risk factors for kidney stones and how the results can guide dietary adjustments. I advised the patient to return any stone fragments at the next visit for detailed laboratory analysis. Patient Instructions - Follow up with scheduled ultrasound in approximately six months. - Complete the 24-hour urine collection as instructed when the kit arrives. - Contact the lab service for pick-up after completing the urine collection. - Bring any stone fragments collected at home to the next appointment. - Adhere to dietary recommendations pending urine analysis outcomes. 08/28/24--Tawanna is a 54-year-old female with history of kidney stones. She is here for further evaluation and stone management. She has occasional left flank pain denies frequent UTIs. Reviewed imaging CT scan-04/26/2024. I have reviewed treatment options to include ESWL.Discussed risks to include but not limited to, blood in the urine, bruising to the skin, kidney hematoma, possible need for another procedure if a stone fragment obstructs the ureter while passing, possible need to repeat procedure if stone is not completely fragmented. CTAP-04/26/2024--. A 1.2 cm nonobstructing left renal pelvic stone. 3. 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 [facility] Medical History (Updated 10/02/24 @ 14:50 by Carleen De Jesus MD) Anemia Graves disease Nephrolithiasis HTN (hypertension) Surgical History Hx of colonoscopy Hx of appendectomy Family History Father No problems noted. Mother Hypertension Social History Housing: House Patient Tobacco Use Status: Never used Tobacco e-Cigarette/Vaping Use: Never Used service: No Current occupational status: employed Cognitive needs: No Hearing needs: No Vision needs: No Results AMB Urinalysis, Automated UA Leukoctes 0 Addie/uL Last Edit by BJ Enamorado on 01/04/25 10:59 UA Nitrite Negative Last Edit by BJ Enamorado on 01/04/25 10:59 UA Urobilinogen 3.5 mg/dL Last Edit by BJ Enamorado on 01/04/25 10:59 UA Protein 0 mg/dL Last Edit by Chad Villanueva CCM on 01/04/25 10:59 UA pH 6.0 Last Edit by Chad Villanueva [facility] on 01/04/25 10:59 UA Blood 10 Eduar/uL Last Edit by Chad Villanueva CCM on 01/04/25 10:59 UA Specific [place] 1.015 Last Edit by BJ Enamorado on 01/04/25 10:59 UA Ketone Negative Last Edit by Chad Villanueva CCM on 01/04/25 10:59 UA Bilirubin 0 mg/dL Last Edit by BJ Enamorado on 01/04/25 10:59 UA Glucose 0 mg/dL Last [facility] 01/04/25 10:59 Results Reviewed Results Reviewed: Laboratory Last Values Urine pH (Auto) 6.0 01/04/25 10:59 Specific [place] (Auto) 1.015 01/04/25 10:59 Urine Protein (Auto) 0 mg/dL 01/04/25 10:59 Glucose (UA)(Auto) 0 mg/dL 01/04/25 10:59 Urine Ketones (Auto) Negative 01/04/25 10:59 Urine Blood (Auto) 10 Eduar/uL 01/04/25 10:59 Urine Nitrite (Auto) Negative 01/04/25 10:59 Urine Bilirubin (Auto) 0 mg/dL 01/04/25 10:59 Urine Urobilinogen (Auto) 3.5 mg/dL 01/04/25 10:59 Leukocyte Esterase (Auto) 0 Addie/uL 01/04/25 10:59 Date of Service: 12/04/24 Procedure(s): US renal BI Accession Number(s): [id number] cc: Farrha Lincoln MD; Carleen De Jesus MD~ CLINICAL HISTORY: N20.0 - Calculus of kidney US Renal Comparison: US/AR/SR - US RENAL BI - 02/07/24 09:14 EDT Findings: Right kidney normal size and echotexture, 11.3 cm length. Left kidney normal size and echotexture, 9.9 cm length. Shadowing stone in the lower pole of the left kidney measuring up to 6 mm similar in appearance to the prior exam. Mild pelvic fullness in both kidneys. Echogenic lesion in the lower pole of the left kidney is stable in appearance and may represent a small angiomyolipoma measuring up to seven mm. IMPRESSION: 1. Shadowing left lower pole stone. 2. Mild pelvic fullness bilaterally. 3. Echogenic mass likely representing an AML in the lower pole of the left kidney is stable measuring 7 mm. Date of Service: 04/26/24 CT ABDOMEN AND PELVIS WITHOUT AND WITH CONTRAST CLINICAL INFORMATION: Microscopic hematuria. COMPARISON: None available. TECHNIQUE: Multidetector volumetric imaging was performed of the abdomen and pelvis before and after the IV administration of 85 mL of Omnipaque 350 intravenous contrast. Sagittal and coronal reformatted images were obtained on the technologist's workstation. This CT examination was performed using dose optimization techniques as appropriate, variously including the following: *Automated exposure control *Adjustment of mA and/or kV according to patient size (this includes techniques or standardized protocols for targeted exams where dose is matched to indication/reason for exam; i.e. extremities or head) *Use of iterative reconstruction technique DLP: 586 mGy-cm FINDINGS: LUNG BASES: The visualized lung bases are unremarkable. LIVER, GALLBLADDER, AND BILIARY TREE: The liver is normal in size, shape, and attenuation. In the right lobe of the liver there is a 2.1 cm peripheral mass seen that has CT characteristics of a hemangioma with peripheral filling (7:38). Calcified granuloma is present in the left lobe of the liver No other focal hepatic lesion or biliary ductal dilatation is present. The gallbladder is unremarkable with no evidence of radiopaque gallstones, gallbladder wall thickening, or obvious pericholecystic inflammatory changes. PANCREAS: Unremarkable. SPLEEN: Unremarkable. ADRENAL GLANDS: Unremarkable. KIDNEYS AND URETERS: The kidneys are normal in size, shape, and attenuation. There is a left-sided 0.9 x 1.2 cm nonobstructing renal pelvic stone present which measures 1500 Hounsfield units and is 9.9 cm from the posterior axillary line. No hydronephrosis, hydroureter, or right-sided or ureteral calculi seen. There is a 0.7 cm cortical benign right angiomyolipoma along with a 0.3 cm left lower pole benign angiomyolipoma which need no additional imaging or follow-up. These were the echogenic masses seen at the time of the prior renal ultrasound. No suspicious renal masses are seen. Pelvicalyceal systems cannot be adequately evaluated as this was not ordered as a CT urogram and the collecting systems are not filled with contrast. No perinephric stranding. BLADDER: Empty with a symmetrically thickened wall without calculi. GASTROINTESTINAL TRACT: The small and large bowel are unremarkable. The appendix is not identified but there is no evidence of appendicitis. ABDOMINAL WALL: No significant hernia is appreciated. LYMPH NODES: No retroperitoneal lymphadenopathy. VASCULAR: Unremarkable. PELVIC VISCERA: Unremarkable. OSSEOUS STRUCTURES: Unremarkable. IMPRESSION: 1. A 1.2 cm nonobstructing left renal pelvic stone. 2. 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 MRI could be performed for confirmation. 3. 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 Assessment & Plan Assessment & Plan Orders: Orders AMB Urinalysis Automated Today Z13.9 - Encounter for screening, unspecified Coding
== END 2025-01-04 11:39 | disposition home or self-care (01) ==
PROVIDERS: PCP Internal Medicine; Visit Provider Urology
DX: Z13.9 Encounter for screening, unspecified (principal)

== ENCOUNTER → 2025-01-04 10:18 | Outpatient (BNVA) | payer OTHER, SELFPAY | PROVIDERS: PCP Internal Medicine; Visit Provider Urology | DX: Z48.816 Encounter for surgical aftercare following surgery on the genitourinary system (principal); N20.0 Calculus of kidney; D17.71 Benign lipomatous neoplasm of kidney | CPT/HCPCS: 81003 ==

== ENCOUNTER 2025-01-29 12:45 | Outpatient (AMB) | payer OTHER, SELFPAY ==
--- NOTE | 2025-01-29 13:21 | A.OFFPC_ITS ---
Vital Signs 01/29/25 13:31 Height 5 ft 2 in Weight 179 lb BMI 32.7 BP 104/70 Blood Pressure Location Rt brachial Position Sitting Respiration 18 Pulse 78 Pulse Source Pulse Oximeter Temp 98.0 F Temp Source Oral Pulse Oximetry (%) 99 Oxygen Delivery Method Room Air Intake Visit Reasons: Annual PE Intake Note: Pt is here today for PE. Allergies Seasonal Allergies Allergy (Mild, Verified 01/29/25 13:32) unknown [place] fruit Allergy (Severe, Uncoded 01/29/25 13:32) Hives Medication List - Last Reconciled 01/29/25 by Carleen De Jesus MD cetirizine 10 mg PO DAILY hydrocortisone 2.5% (Proctosol HC) 1 appl CO BID-QID PRN methimazole 10 mg (2 x 5 mg) PO DAILY pravastatin 20 mg PO DAILY valsartan-hydrochlorothiazide 320-12.5 mg 1 tab PO DAILY Tobacco use date assessed: 01/29/25 Dental Screening Dental Screen Date: 01/29/25 Did you have a dental visit in the last 12 months?: No Did you have a dental problem in the last 6 months where you did not have access to dental care?: No Was dental information given to patient?: Patient declined HPI Annual PE HPI Details Pt presents for PE. PFSH Medical History Anemia Graves disease Nephrolithiasis HTN (hypertension) Surgical History Hx of colonoscopy Hx of appendectomy Family History Father No problems noted. Mother Hypertension Social History Housing: House Patient Tobacco Use Status: Never used Tobacco e-Cigarette/Vaping Use: Never Used service: No Current occupational status: employed Cognitive needs: No Hearing needs: No Vision needs: No Questionnaire PHQ-9 Over the last 2 weeks, how often have you been bothered by any of the following problems? 1. Little interest or pleasure in doing things: not at all 2. Feeling down, depressed, or hopeless: not at all 3. Trouble falling or staying asleep, or sleeping too much: not at all 4. Feeling tired or having little energy: not at all 5. Poor appetite or overeating: not at all 6. Feeling bad about yourself - or that you are a failure or have let yourself or your family down: not at all 7. Trouble concentrating on things, such as reading the newspaper or watching television: not at all 8. Moving or speaking so slowly that other people could have noticed. Or the opposite - being so fidgety or restless that you have been moving around a lot more than usual: not at all 9. Thoughts that you would be better off or of hurting yourself in some w ay: not at all Total score: 0 Depression Screening Interpretation: Negative Depression Screening Done: Yes 89460 - PHQ-9 Billing: Yes Source: Developed by Drs. Amandeep Montero, Lara Lucas, Patrick Roberts and colleagues, with an educational elmer from [employer]. Thrive Questionnaire Date Thrive assessed: 01/29/25 I am a: Patient What is your living situation today?: I have a steady place to live Within the past 12 months, did the food you bought not last and you didn't have the money to get more?: Never true Within the past 12 months, did you worry whether your food would run out before you got money to buy more?: Never true Do you have trouble paying for medicines?: No Do you have trouble getting transportation to medical appointments?: No Do you have trouble paying your heating and electricity bill?: No Do you have trouble taking care of your child, family member or friend?: No Do you have trouble with day-to-day activities such as bathing, preparing meals, shopping, managing finances, etc.?: No Are you currently unemployed and looking for a job?: No Are you interested in more education?: No Please select the resources that you would like help with: None Currently or been in a relationship where the following occur: I choose not to answer THRIVE Score: 0 AUDIT C Alcohol Use Questionnaire (AUDIT-C) 1. How often do you have a drink containing alcohol?: Never 3. How often do you have six or more drinks on one occasion?: Never Total Score: 0 AGUSTO-7 AMB Questionnaire AGUSTO-7 Date AGUSTO - 7 assessed: 01/29/25 Feeling nervous, anxious, or on edge: 0 = Not at all Not being able to stop or control worryin = Not at all Worrying too much about different things: 0 = Not at all Trouble relaxin = Not at all Being so restless that it is hard to sit still: 0 = Not at all Becoming easily annoyed or irritable: 0 = Not at all Feeling afraid as if something awful might happen: 0 = Not at all Total AGUSTO-7 score (0-4 normal; 5-9 mild; 10-14 moderate; 15-21 severe): 0 Source: Developed by Drs. Amandeep Montero, Lara Lucas, Patrick Roberts and colleagues, with an educational elmer from [employer]. AGUSTO-7 Assessment Billing AGUSTO-7 Assessment Tool: AGUSTO-7 Assessment 72866 Review of Systems Const All systems reviewed & are unremarkable except as noted in HPI and below Reports no additional complaints Eyes Reports no additional complaints ENT Reports no additional complaints Card Reports no additional complaints Resp Reports no additional complaints GI Reports no additional complaints Reports no additional complaints Physical exam (Primary Care) Vital Signs: Last Vital Signs Temp 98.0 F 01/29/25 13:31 Pulse 78 01/29/25 13:31 Resp 18 01/29/25 13:31 BP 104/70 01/29/25 13:31 Pulse Ox 99 01/29/25 13:31 Oxygen Delivery Method Room Air 01/29/25 13:31 BMI result Body Mass Index 32.7 Tobacco/Smoking Status: Tobacco use Status Tobacco use date assessed 01/29/25 01/29/25 13:38 Patient Tobacco Use Status Never used Tobacco 01/29/25 13:22 e-Cigarette/Vaping Use Never Used 01/29/25 13:22 PHQ-9: PHQ-9 Score PHQ-9: Total score 0 01/29/25 13:38 Depression Screening Interpretation: Negative Thrive Assessment: Date of Thrive Assessment Date Thrive assessed 01/29/25 01/29/25 13:38 Currently or been in a relationship where the following occur: I choose not to answer Const General: no acute distress HENMT Head: Yes normal to inspection Ears: hearing grossly normal bilaterally General nose exam: Normal external nose present Face and sinus: Yes normal facial exam Mouth: Normal oral and palatal mucosa present Throat: Yes posterior oropharynx normal Eyes General: appearance normal, both eyes and all related structures Neck Neck: Yes no lymphadenopathy and Yes supple Resp Effort & Inspection: normal respiratory effort Auscultation: clear to auscultation bilaterally Cardio Rhythm: regular rhythm Heart sounds: S1 normal heart sound present and S2 normal heart sound present GI Inspection: Yes normal to inspection Palpation (GI): Soft to palpation Percussion: Yes normal to percussion Auscultation: normal bowel sounds Coding Level of Care Code Est Pt Prev Care 40-64y(01734) Diagnoses HTN (hypertension) I10 Hyperlipemia E78.5 Graves disease E05.00 Nephrolithiasis N20.0 Annual physical exam Z00.00 Additional Codes AGUSTO-7 Assessment Billing - AGUSTO-7 Assessment Tool: AGUSTO-7 Assessment 32838 ([id number]) PHQ-9 - 10448 - PHQ-9 Billing: Yes ([id number]) Assessment & Plan Assessment & Plan (1) HTN (hypertension): Code(s): I10 - Essential (primary) hypertension Category: Medical Plan: cont meds (2) Hyperlipemia: Code(s): E78.5 - Hyperlipidemia, unspecified Category: Medical Plan: Continue statin (3) Graves disease: Comment: Positive nuclear scan 05/2024, follows up with [facility] endocrinology Code(s): E05.00 - Thyrotoxicosis with diffuse goiter without thyrotoxic crisis or storm Category: Medical Plan: Continue methimazole check TSH (4) Nephrolithiasis: Comment: Follows up with Urology Code(s): N20.0 - Calculus of kidney Category: Medical Plan: Follow-up with urology (5) Annual physical exam: Comment: pap negative 2020 Code(s): Z00.00 - Encounter for general adult medical examination without abnormal findings Category: Medical Plan: Well-balanced diet regular physical activity discussed with the patient Orders: Orders [facility]. Panel Fast 6 Months E05.00 - Thyrotoxicosis with diffuse goiter without thyrotoxic crisis or storm, E78.5 - Hyperlipidemia, unspecified, I10 - Essential (primary) hypertension Complete Blood Count Auto Diff 6 Months E05.00 - Thyrotoxicosis with diffuse goiter without thyrotoxic crisis or storm, E78.5 - Hyperlipidemia, unspecified, I10 - Essential (primary) hypertension TSH reflex Free T4 6 Months E05.00 - Thyrotoxicosis with diffuse goiter without thyrotoxic crisis or storm, E78.5 - Hyperlipidemia, unspecified, I10 - Essential (primary) hypertension Vitamin D 25-OH Total 6 Months E05.00 - Thyrotoxicosis with diffuse goiter without thyrotoxic crisis or storm, E78.5 - Hyperlipidemia, unspecified, I10 - Essential (primary) hypertension UA w Microscopic 6 Months E05.00 - Thyrotoxicosis with diffuse goiter without thyrotoxic crisis or storm, E78.5 - Hyperlipidemia, unspecified, I10 - Essential (primary) hypertension Lipid Panel 6 Months E05.00 - Thyrotoxicosis with diffuse goiter without thyrotoxic crisis or storm, E78.5 - Hyperlipidemia, unspecified, I10 - Essential (primary) hypertension
[2025-01-29 13:31] VITALS: BP 104/70; PULSE 78; RESP 18; TEMP 36.7; O2SAT 99; BMI 32.7
== END 2025-01-29 14:14 | disposition home or self-care (01) ==
LOC: HO.HMCC 12:45
PROVIDERS: PCP Internal Medicine; Visit Provider Internal Medicine
DX: I10 Essential (primary) hypertension (principal); E78.5 Hyperlipidemia, unspecified; E05.00 Thyrotoxicosis with diffuse goiter without thyrotoxic crisis or storm; N20.0 Calculus of kidney; Z00.00 Encounter for general adult medical examination without abnormal findings

== ENCOUNTER → 2025-01-29 12:45 | Outpatient (BNVA) | payer OTHER, SELFPAY | PROVIDERS: PCP Internal Medicine; Visit Provider Internal Medicine | DX: Z00.00 Encounter for general adult medical examination without abnormal findings (principal); I10 Essential (primary) hypertension; E78.5 Hyperlipidemia, unspecified; E05.00 Thyrotoxicosis with diffuse goiter without thyrotoxic crisis or storm; N20.0 Calculus of kidney; Z79.899 Other long term (current) drug therapy | CPT/HCPCS: 96127 ==

== ENCOUNTER 2025-03-30 09:21 | Outpatient (REF) | payer OTHER, SELFPAY | END 2025-03-30 09:22 | disposition home or self-care (01) | LOC: HO.LNP 09:21 | PROVIDERS: Visit Provider Urology | DX: N20.0 Calculus of kidney (principal) | CPT/HCPCS: 82365; 88300 ==

== ENCOUNTER 2025-03-30 09:30 | Outpatient (AMB) | payer OTHER, SELFPAY ==
--- NOTE | 2025-03-30 09:46 | A.OFFVIS_ITS ---
Intake Visit Reasons: 12w/[facility] Intake Note: Patient is present for 12 week follow up/[facility] * 03/05 [facility] comp. (brought in stones) Urology Medication:NONE Antibiotic Allergy:NONE Blood Thinner:NONE Boxing Machine Operator Required: No Allergies Seasonal Allergies Allergy (Mild, Verified 03/30/25 09:56) unknown [place] fruit Allergy (Severe, Uncoded 01/29/25 13:32) Hives HPI Comments Details: 03/30/25-- 01/04/25--54-year-old female presenting with nephrolithiasis. In October, she underwent ESWL for a sizable 12 mm kidney stone, which was partially fragmented by the procedure. Following this intervention, about 7 mm of the stone remains. The patient experienced symptomatic relief with the discharge of sand-like particles but the retained fragment necessitates further observation. Her symptoms include urinary frequency, likely related to the residual stone fragment's impact on her urinary tract function. Discussed further evaluation with 24 hr urine. Urinary Symptoms Review - Urinary frequency noted - History of nephrolithiasis - Post-ESWL stone fragmentation and remnant reduction to 7 mm - Observation of sand-like fragments post-procedure Results - Previous ultrasound revealed a 12 mm kidney stone, partially fragmented to approximately 7 mm post-ESWL. 08/28/24--Tawanna is a 54-year-old female with history of kidney stones. She is here for further evaluation and stone management. She has occasional left flank pain denies frequent UTIs. Reviewed imaging CT scan-04/26/2024. I have reviewed treatment options to include ESWL.Discussed risks to include but not limited to, blood in the urine, bruising to the skin, kidney hematoma, possible need for another procedure if a stone fragment obstructs the ureter while passing, possible need to repeat procedure if stone is not completely fragmented. CTAP-04/26/2024--. A 1.2 cm nonobstructing left renal pelvic stone. 3. 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 PFSH Medical History Anemia Graves disease Nephrolithiasis HTN (hypertension) Surgical History Hx of colonoscopy Hx of appendectomy Family History Father No problems noted. Mother Hypertension Social History Housing: House Patient Tobacco Use Status: Never used Tobacco e-Cigarette/Vaping Use: Never Used service: No Current occupational status: employed Cognitive needs: No Hearing needs: No Vision needs: No Assessment & Plan Assessment & Plan Orders: Orders AMB Urinalysis Automated Today Z13.9 - Encounter for screening, unspecified Coding
== END 2025-03-30 10:33 | disposition home or self-care (01) ==
LOC: HO.HUSH 09:31
PROVIDERS: PCP Internal Medicine; Visit Provider Urology
DX: Z13.9 Encounter for screening, unspecified (principal)

== ENCOUNTER → 2025-03-30 09:30 | Outpatient (BNVA) | payer OTHER, SELFPAY | PROVIDERS: PCP Internal Medicine; Visit Provider Urology | DX: N20.0 Calculus of kidney (principal); Z13.9 Encounter for screening, unspecified | CPT/HCPCS: 81003 ==

== ENCOUNTER 2025-05-19 06:46 | Outpatient (REF) | payer OTHER, SELFPAY ==
[2025-05-19 11:15] LABS: MANUAL DIFF FLAG NO
[2025-05-19 11:20] LABS: Hematocrit 34.7 % (37.0-47.0); Hemoglobin 10.8 g/dl (12.0-16.0); Imm Gran Abs Auto 0.01 X10*3/uL (0.00-0.03); Imm Gran Pct Auto 0.2 % (0.0-0.4); Lymphocytes Absolute Auto 2.2 X10*3/uL (1.2-4.9); Mean Corpuscular HGB Conc 31.1 g/dl (31.0-35.0); Mean Corpuscular Hemoglobin 24.1 pg (27.0-33.0); Mean Corpuscular Volume 77.3 fL (80.0-98.0); NRBC Abs Auto 0.000 X10*3/uL (0.0-0.012); NRBC Pct Auto 0.0 /100WBC (0.0-0.2); Platelet Count 301 X10*3/uL (160-400); Red Blood Count 4.49 X10*6/uL (4.20-5.50); White Blood Count 5.2 X10*3/uL (4.8-10.8)
[2025-05-19 11:46] LABS: Alanine Aminotransferase 19 U/L (0-31); Albumin Level 4.3 g/dL (3.5-5.0); Alkaline Phosphatase 54 U/L (39-117); Anion Gap 12 (12-20); Aspartate Amino Transferase 29 U/L (5-31); Blood Urea Nitrogen 12 mg/dL (9-16); Calcium 8.8 mg/dL (8.4-10.2); Carbon Dioxide 24 mmol/L (22-29); Chloride 108 mmol/L (96-108); Cholesterol 188 mg/dL (<200); Estimated Glomerular Filt Rate > 60; HDL Cholesterol 71 mg/dL (>40); Potassium 4.2 mmol/L (3.3-5.1); Sodium 140 mmol/L (135-145); Total Protein 7.3 g/dL (6.5-8.0); Triglycerides 86 mg/dL (<150)
== END 2025-05-19 06:47 | disposition home or self-care (01) ==
LOC: HO.HMGCLDS 06:46
PROVIDERS: PCP Internal Medicine; Visit Provider Internal Medicine
DX: E78.5 Hyperlipidemia, unspecified (principal); D64.9 Anemia, unspecified; I10 Essential (primary) hypertension; E05.00 Thyrotoxicosis with diffuse goiter without thyrotoxic crisis or storm
CPT/HCPCS: 36415; 80053; 80061; 84443; 85025

== ENCOUNTER 2025-07-13 10:25 | Outpatient (REF) | payer OTHER, SELFPAY ==
--- NOTE | ~2025-07-13 | US_ITS ---
EXAMINATION: US KIDNEY BILATERAL HISTORY: N20.0 - Calculus of kidney TECHNIQUE: Real-time grayscale ultrasound imaging of the kidneys was performed and images were reviewed. COMPARISON: Comparison is made with the prior examination dated 12/04/2024. Correlation is also made with a CT of the abdomen dated 04/26/2024. FINDINGS: Right kidney: The right kidney measures 11.4 x 5.0 x 5.6 cm. Renal parenchymal echotexture and thickness are normal. There are no masses. There is no hydronephrosis or renal calculi. Left Kidney: The left kidney measures 10.4 x 4.5 x 4.4 cm. Renal parenchymal echotexture and thickness are normal. There is an 8 mm echogenic lesion at the lower pole suggestive of an angiomyolipoma. There is no hydronephrosis or renal calculi. 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 No renal calculi are identified. Electronically signed by: Amandeep Mcbride MD 07/13/2025 10:56 AM EDT
== END 2025-07-13 10:26 | disposition home or self-care (01) ==
LOC: HO.HMGCX 10:25
PROVIDERS: PCP Internal Medicine; Visit Provider Urology
DX: N20.0 Calculus of kidney (principal)
CPT/HCPCS: 76775

== ENCOUNTER → 2025-07-13 10:27 | Outpatient (BNV) | payer OTHER, SELFPAY | PROVIDERS: PCP Internal Medicine; Visit Provider Radiology Diagnostic Radiology | DX: D17.71 Benign lipomatous neoplasm of kidney (principal) | CPT/HCPCS: 76775 ==

== ENCOUNTER 2025-07-30 11:40 | Outpatient (AMB) | payer OTHER, SELFPAY ==
--- NOTE | 2025-07-30 11:46 | MHC.PC.OV ---
Vital Signs 07/30/25 11:48 Height 5 ft 2 in Weight 177 lb BMI 32.4 BP 120/76 Blood Pressure Location Lt brachial Position Sitting Respiration 18 Pulse 75 Pulse Source Pulse Oximeter Temp 98.2 F Temp Source Oral Pulse Oximetry (%) 98 Oxygen Delivery Method Room Air Intake Visit Reasons: 6 months f/up Intake Note: Pt is here today for 6 months follow up visit. Allergies Seasonal Allergies Allergy (Mild, Verified 07/30/25 11:49) unknown [place] fruit Allergy (Severe, Uncoded 07/30/25 11:49) Hives Tobacco use date assessed: 07/30/25 Dental Screening Dental Screen Date: 01/29/25 HPI 6 months f/up HPI Details Pt presents for f/u HTN, hyperlipid, hypothyroid, stable on meds. Patient complains of new onset headache for the last 2 months on and off at least once a week, 10/10, pounding like sensation. Patient denies change in the vision nausea vomiting weakness or numbness in extremities or change in the balance. [facility] Medical History (Updated 07/30/25 @ 12:52 by Carleen De Jesus MD) Nephrolithiasis Graves disease Hyperthyroidism Anemia Nephrolithiasis HTN (hypertension) Surgical History Hx of colonoscopy Hx of appendectomy Family History Father No problems noted. Mother Hypertension Social History Housing: House Patient Tobacco Use Status: Never used Tobacco e-Cigarette/Vaping Use: Never Used service: No Current occupational status: employed Cognitive needs: No Hearing needs: No Vision needs: No Questionnaire PHQ-9 Over the last 2 weeks, how often have you been bothered by any of the following problems? 1. Little interest or pleasure in doing things: not at all 2. Feeling down, depressed, or hopeless: not at all 3. Trouble falling or staying asleep, or sleeping too much: not at all 4. Feeling tired or having little energy: not at all 5. Poor appetite or overeating: not at all 6. Feeling bad about yourself - or that you are a failure or have let yourself or your family down: not at all 7. Trouble concentrating on things, such as reading the newspaper or watching television: not at all 8. Moving or speaking so slowly that other people could have noticed. Or the opposite - being so fidgety or restless that you have been moving around a lot more than usual: not at all 9. Thoughts that you would be better off or of hurting yourself in some way: not at all Total score: 0 Depression Screening Interpretation: Negative Depression Screening Done: Yes Source: Developed by Drs. Amandeep Montero, Lara Lucas, Patrcik Roberts and colleagues, with an educational elmer from [employer]. Thrive Questionnaire Date Thrive assessed: 01/24/25 I am a: Patient What is your living situation today?: I have a steady place to live Within the past 12 months, did the food you bought not last and you didn't have the money to get more?: Never true Within the past 12 months, did you worry whether your food would run out before you got money to buy more?: Never true Do you have trouble paying for medicines?: No Do you have trouble getting transportation to medical appointments?: No Do you have trouble paying your heating and electricity bill?: No Do you have trouble taking care of your child, family member or friend?: No Do you have trouble with day-to-day activities such as bathing, preparing meals, shopping, managing finances, etc.?: No Are you currently unemployed and looking for a job?: No Are you interested in more education?: No THRIVE Score: 0 AGUSTO-7 AMB Questionnaire AGUSTO-7 Date AGUSTO - 7 assessed: 01/29/25 Feeling nervous, anxious, or on edge: 0 = Not at all Not being able to stop or control worryin = Not at all Worrying too much about different things: 0 = Not at all Trouble relaxin = Not at all Being so restless that it is hard to sit still: 0 = Not at all Becoming easily annoyed or irritable: 0 = Not at all Feeling afraid as if something awful might happen: 0 = Not at all Total AGUSTO-7 score (0-4 normal; 5-9 mild; 10-14 moderate; 15-21 severe): 0 Source: Developed by Drs. Amandeep Montero, Lara Lucas, Patrick Roberts and colleagues, with an educational elmer from [employer]. Review of Systems Const All systems reviewed & are unremarkable except as noted in HPI and below Eyes Reports no additional complaints ENT Reports no additional complaints Card Reports no additional complaints Resp Reports no additional complaints GI Reports no additional complaints Reports no additional complaints Physical exam (Primary Care) Vital Signs: Last Vital Signs Temp 98.2 F 07/30/25 11:48 Pulse 75 07/30/25 11:48 Resp 18 07/30/25 11:48 BP 120/76 07/30/25 11:48 Pulse Ox 98 07/30/25 11:48 Oxygen Delivery Method Room Air 07/30/25 11:48 BMI result Body Mass Index 32.4 Tobacco/Smoking Status: Tobacco use Status Tobacco use date assessed 07/30/25 07/30/25 11:51 Patient Tobacco Use Status Never used Tobacco 07/30/25 11:46 e-Cigarette/Vaping Use Never Used 07/30/25 11:46 PHQ-9: PHQ-9 Score PHQ-9: Total score 0 07/30/25 11:51 Depression Screening Interpretation: Negative Thrive Assessment: Date of Thrive Assessment Date Thrive assessed 01/24/25 07/30/25 11:46 Const General: no acute distress HENMT Head: Yes normal to inspection Ears: TM's normal bilaterally Face and sinus: Yes normal facial exam Throat: Yes posterior oropharynx normal Eyes General: appearance normal, both eyes and all related structures Neck Neck: Yes supple Resp Effort & Inspection: normal respiratory effort Auscultation: clear to auscultation bilaterally Cardio Rhythm: regular rhythm Heart sounds: S1 normal heart sound present and S2 normal heart sound present Neuro Cranial nerves: Yes CN's II-XII intact bilaterally Gait exam (Neuro): Normal gait present Motor exam (neuro): 5/5 motor strength present throughout Romberg Test: Negative Coding Level of Care Code Est Pt Level 4 (03708) Diagnoses New onset headache R51.9 HTN (hypertension) I10 Hyperlipemia E78.5 Hyperthyroidism E05.90 Assessment & Plan Assessment & Plan (1) New onset headache: Code(s): R51.9 - Headache, unspecified Category: Medical Plan: Check CT of the brain (2) HTN (hypertension): Code(s): I10 - Essential (primary) hypertension Category: Medical Plan: Continue current medications (3) Hyperlipemia: Code(s): E78.5 - Hyperlipidemia, unspecified Category: Medical Plan: cont statin (4) Hyperthyroidism: Comment: Follows up with [facility] endocrinology Code(s): E05.90 - Thyrotoxicosis, unspecified without thyrotoxic crisis or storm Category: Medical Plan: Continue methimazole follow-up with endocrinology Orders: Orders CT head/brain wo IV con Today R51.9 - Headache, unspecified Medications: New meclizine 25 mg PO BID PRN 30 tabs 0RF dizziness
[2025-07-30 11:48] VITALS: BP 120/76; PULSE 75; RESP 18; TEMP 36.8; O2SAT 98; BMI 32.4
== END 2025-07-30 12:11 | disposition home or self-care (01) ==
LOC: HO.HMCC 11:41
PROVIDERS: PCP Internal Medicine; Visit Provider Internal Medicine
DX: R51.9 Headache, unspecified (principal); I10 Essential (primary) hypertension; E78.5 Hyperlipidemia, unspecified; E05.90 Thyrotoxicosis, unspecified without thyrotoxic crisis or storm

== ENCOUNTER 2025-08-04 09:44 | Outpatient (REF) | payer OTHER, SELFPAY ==
--- NOTE | ~2025-08-04 | CT_ITS ---
CLINICAL HISTORY: R51.9 - Headache, unspecified CT head without contrast Comparison: None provided Findings: No intra-axial mass, midline shift, hydrocephalus, or acute hemorrhage. No significant atrophy-like change or white matter disease. There is no sinus or mastoid fluid. The orbits are within normal limits. No skull fracture. IMPRESSION: 1. No acute intracranial findings. This document has been electronically signed by: Jono Seals MD on 08/04/2025 12:03:06
== END 2025-08-04 09:45 | disposition home or self-care (01) ==
LOC: HO.CT 09:44
PROVIDERS: PCP Internal Medicine; Visit Provider Internal Medicine
DX: R51.9 Headache, unspecified (principal)
CPT/HCPCS: 70450

== ENCOUNTER → 2025-08-04 09:45 | Outpatient (BNV) | payer OTHER, SELFPAY | PROVIDERS: PCP Internal Medicine; Visit Provider Specialist | DX: R51.9 Headache, unspecified (principal) | CPT/HCPCS: 70450 ==

== ENCOUNTER 2025-08-09 15:21 | Outpatient (AMB) | payer OTHER, SELFPAY ==
--- NOTE | 2025-08-09 15:52 | A.OFFVIS_ITS ---
Intake Visit Reasons: Follow up/US Intake Note: Patient is present for a follow up * 07/13 Renal US Urology Medication:NONE Antibiotic Allergy:NONE Blood Thinner:NONE Joggle Press Operator Required: No Allergies Seasonal Allergies Allergy (Mild, Verified 08/09/25 15:53) unknown [place] fruit Allergy (Severe, Uncoded 07/30/25 11:49) Hives HPI Comments Details: 08/09/25--Katia is here for follow-up history of kidney stones. Renal ultrasound was done in July noting 8 mm left kidney angiomyolipoma angiomyolipoma which is stable no renal calculi noted. History of Present Illness The patient is a 55-year-old female presenting for a follow-up on her history of kidney stones. A renal ultrasound conducted in July revealed an 8 mm angiomyolipoma in the left kidney, which remains stable, and no renal calculi were noted. The patient reports experiencing pain on one side, although the ultrasound did not detect any kidney stones, suggesting the possibility of a small stone that might have been missed or passed. The patient has been managing the pain with ibuprofen, which provides relief, indicating the pain might be related to muscle spasms. A non-urgent CAT scan has been recommended to further investigate the cause of the pain, as it is more sensitive than an ultrasound. The angiomyolipoma, a small fatty growth in the kidney, is stable and not causing any pain. The patient has been advised to maintain hydration and use a heating pad along with ibuprofen as needed. Results - Renal ultrasound: 8 mm angiomyolipoma in the left kidney, no renal calculi noted Plan 1. Kidney Stones - Recommend a non-urgent CAT scan to further investigate the cause of pain, as it is more sensitive than an ultrasound. - Advise continued hydration and use of ibuprofen as needed for pain management. 2. Angiomyolipoma Of The Left Kidney - Monitor the angiomyolipoma as it is stable and not causing any pain. 03/30/25--Discussed 24 hour urine results collected: 03/05/25--Total volume 2.73 L, Calcium 106 mg; Oxalate 21 mg, Citrate 404 mg, Sodium 189. Instructed on importance of fluid intake. I have discussed diet modification to decrease risk of forming more kidney stones. I have discussed low oxalate diet and specific foods to avoid including certain green leafy vegetables, chocalate, nuts, tea, beets, rubarb; low sodium, decreased use of animal protein and the importance of hydration drinking up to 2-2.5 liters of fluids and use of adding lemon to water to increase citrate in the diet. A pamphlet is also provided today. FU 3 months, renal US prior. 01/04/25--54-year-old female presenting with nephrolithiasis. In October, she underwent ESWL for a sizable 12 mm kidney stone, which was partially fragmented by the procedure. Following this intervention, about 7 mm of the stone remains. The patient experienced symptomatic relief with the discharge of sand-like particles but the retained fragment necessitates further observation. Her sympt oms include urinary frequency, likely related to the residual stone fragment's impact on her urinary tract function. Discussed further evaluation with 24 hr urine. Urinary Symptoms Review - Urinary frequency noted - History of nephrolithiasis - Post-ESWL stone fragmentation and remnant reduction to 7 mm - Observation of sand-like fragments post-procedure Results - Previous ultrasound revealed a 12 mm kidney stone, partially fragmented to approximately 7 mm post-ESWL. 08/28/24--Tawanna is a 54-year-old female with history of kidney stones. She is here for further evaluation and stone management. She has occasional left flank pain denies frequent UTIs. Reviewed imaging CT scan-04/26/2024. I have reviewed treatment options to include ESWL.Discussed risks to include but not limited to, blood in the urine, bruising to the skin, kidney hematoma, possible need for another procedure if a stone fragment obstructs the ureter while passing, possible need to repeat procedure if stone is not completely fragmented. CTAP-04/26/2024--. A 1.2 cm nonobstructing left renal pelvic stone. 3. 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 PFSH Medical History Nephrolithiasis Graves disease Hyperthyroidism Anemia Nephrolithiasis HTN (hypertension) Surgical History Hx of colonoscopy Hx of appendectomy Family History Father No problems noted. Mother Hypertension Social History Housing: House Patient Tobacco Use Status: Never used Tobacco e-Cigarette/Vaping Use: Never Used service: No Current occupational status: employed Cognitive needs: No Hearing needs: No Vision needs: No Results AMB Urinalysis, Automated UA Leukoctes 0 Addie/uL Last Edit by Ann Marie Crowell on 08/09/25 16:40 UA Nitrite Negative Last Edit by Ann Marie Crowell on 08/09/25 16:40 UA Urobilinogen 0.2 mg/dL Last Edit by Ann Marie Crowell on 08/09/25 16:40 UA Protein 0 mg/dL Last Edit by Ann Marie Crowell on 08/09/25 16:40 UA pH 6.0 Last Edit by Ann Marie Crowell on 08/09/25 16:40 UA Blood 80 Eduar/uL Last Edit by Ann Marie Crowell on 08/09/25 16:40 UA Specific [place] 1.015 Last Edit by Ann Marie Crowell on 08/09/25 16:40 UA Ketone Negative Last Edit by Ann Marie Crowell on 08/09/25 16:40 UA Bilirubin 0 mg/dL Last Edit by Ann Marie Crowell on 08/09/25 16:40 UA Glucose 0 mg/dL Last Edit by Ann Marie Crowell on 08/09/25 16:40 Results Reviewed Results Reviewed: Date of Service: 07/13/25 EXAMINATION: US KIDNEY BILATERAL HISTORY: N20.0 - Calculus of kidney TECHNIQUE: Real-time grayscale ultrasound imaging of the kidneys was performed and images were reviewed. COMPARISON: Comparison is made with the prior examination dated 12/04/2024. Correlation is also made with a CT of the abdomen dated 04/26/2024. FINDINGS: Right kidney: The right kidney measures 11.4 x 5.0 x 5.6 cm. Renal parenchymal echotexture and thickness are normal. There are no masses. There is no hydronephrosis or renal calculi. Left Kidney: The left kidney measures 10.4 x 4.5 x 4.4 cm. Renal parenchymal echotexture and thickness are normal. There is an 8 mm echogenic lesion at the lower pole suggestive of an angiomyolipoma. There is no hydronephrosis or renal calculi. IMPRESSION: 8 mm probable left renal angiomyolipoma. No renal calculi are identified. Date of Service: 12/04/24 US Renal Comparison: US/[place]/SR - US RENAL BI - 02/07/24 09:14 EDT Findings: Right kidney normal size and echotexture, 11.3 cm length. Left kidney normal size and echotexture, 9.9 cm length. Shadowing stone in the lower pole of the left kidney measuring up to 6 mm similar in appearance to the prior exam. Mild pelvic fullness in both kidneys. Echogenic lesion in the lower pole of the left kidney is stable in appearance and may represent a small angiomyolipoma measuring up to seven mm. IMPRESSION: 1. Shadowing left lower pole stone. 2. Mild pelvic fullness bilaterally. 3. Echogenic mass likely representing an AML in the lower pole of the left kidney is stable measuring 7 mm. Date of Service: 04/26/24 CT ABDOMEN AND PELVIS WITHOUT AND WITH CONTRAST CLINICAL INFORMATION: Microscopic hematuria. COMPARISON: None available. TECHNIQUE: Multidetector volumetric imaging was performed of the abdomen and pelvis before and after the IV administration of 85 mL of Omnipaque 350 intravenous contrast. Sagittal and coronal reformatted images were obtained on the technologist's workstation. This CT examination was performed using dose optimization techniques as appropriate, variously including the following: *Automated exposure control *Adjustment of mA and/or kV according to patient size (this includes techniques or standardized protocols for targeted exams where dose is matched to indication/reason for exam; i.e. extremities or head) *Use of iterative reconstruction technique DLP: 586 mGy-cm FINDINGS: LUNG BASES: The visualized lung bases are unremarkable. LIVER, GALLBLADDER, AND BILIARY TREE: The liver is normal in size, shape, and attenuation. In the right lobe of the liver there is a 2.1 cm peripheral mass seen that has CT characteristics of a hemangioma with peripheral filling (7:38). Calcified granuloma is present in the left lobe of the liver No other focal hepatic lesion or biliary ductal dilatation is present. The gallbladder is unremarkable with no evidence of radiopaque gallstones, gallbladder wall thickening, or obvious pericholecystic inflammatory changes. PANCREAS: Unremarkable. SPLEEN: Unremarkable. ADRENAL GLANDS: Unremarkable. KIDNEYS AND URETERS: The kidneys are normal in size, shape, and attenuation. There is a left-sided 0.9 x 1.2 cm nonobstructing renal pelvic stone present which measures 1500 Hounsfield units and is 9.9 cm from the posterior axillary line. No hydronephrosis, hydroureter, or right-sided or ureteral calculi seen. There is a 0.7 cm cortical benign right angiomyolipoma along with a 0.3 cm left lower pole benign angiomyolipoma which need no additional imaging or follow-up. These were the echogenic masses seen at the time of the prior renal ultrasound. No suspicious renal masses are seen. Pelvicalyceal systems cannot be adequately evaluated as this was not ordered as a CT urogram and the collecting systems are not filled with contrast. No perinephric stranding. BLADDER: Empty with a symmetrically thickened wall without calculi. GASTROINTESTINAL TRACT: The small and large bowel are unremarkable. The appendix is not identified but there is no evidence of appendicitis. ABDOMINAL WALL: No significant hernia is appreciated. LYMPH NODES: No retroperitoneal lymphadenopathy. VASCULAR: Unremarkable. PELVIC VISCERA: Unremarkable. OSSEOUS STRUCTURES: Unremarkable. IMPRESSION: 1. A 1.2 cm nonobstructing left renal pelvic stone. 2. 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 MRI could be performed for confirmation. 3. 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 Assessment & Plan Assessment & Plan Orders: Orders AMB Urinalysis Automated Today N20.0 - Calculus of kidney, R31.29 - Other microscopic hematuria Coding
== END 2025-08-09 16:29 | disposition home or self-care (01) ==
LOC: HO.HUSH 15:22
PROVIDERS: PCP Internal Medicine; Visit Provider Urology
DX: N20.0 Calculus of kidney (principal); R31.29 Other microscopic hematuria

== ENCOUNTER → 2025-08-09 15:21 | Outpatient (BNVA) | payer OTHER, SELFPAY | PROVIDERS: PCP Internal Medicine; Visit Provider Urology | DX: N20.0 Calculus of kidney (principal); D17.71 Benign lipomatous neoplasm of kidney | CPT/HCPCS: 81003 ==

== ENCOUNTER 2025-10-12 07:20 | Outpatient (REF) | payer OTHER, SELFPAY ==
[2025-10-12 10:11] LABS: MANUAL DIFF FLAG NO
[2025-10-12 10:19] LABS: Hematocrit 37.0 % (37.0-47.0); Hemoglobin 11.8 g/dl (12.0-16.0); Imm Gran Abs Auto 0.02 X10*3/uL (0.00-0.03); Imm Gran Pct Auto 0.3 % (0.0-0.4); Lymphocytes Absolute Auto 2.4 X10*3/uL (1.2-4.9); Mean Corpuscular HGB Conc 31.9 g/dl (31.0-35.0); Mean Corpuscular Hemoglobin 26.2 pg (27.0-33.0); Mean Corpuscular Volume 82.2 fL (80.0-98.0); NRBC Abs Auto 0.000 X10*3/uL (0.0-0.012); NRBC Pct Auto 0.0 /100WBC (0.0-0.2); Platelet Count 307 X10*3/uL (160-400); Red Blood Count 4.50 X10*6/uL (4.20-5.50); White Blood Count 6.1 X10*3/uL (4.8-10.8)
[2025-10-12 10:40] LABS: Alanine Aminotransferase 20 U/L (0-31); Albumin Level 4.3 g/dL (3.5-5.0); Alkaline Phosphatase 57 U/L (39-117); Anion Gap 11 (12-20); Aspartate Amino Transferase 24 U/L (5-31); Blood Urea Nitrogen 12 mg/dL (9-16); Calcium 9.2 mg/dL (8.4-10.2); Carbon Dioxide 27 mmol/L (22-29); Chloride 106 mmol/L (96-108); Cholesterol 218 mg/dL (<200); Estimated Glomerular Filt Rate > 60; HDL Cholesterol 59 mg/dL (>40); Potassium 3.8 mmol/L (3.3-5.1); Sodium 140 mmol/L (135-145); Total Protein 7.5 g/dL (6.5-8.0); Triglycerides 104 mg/dL (<150)
[2025-10-12 10:52] LABS: Appearance Urine Turbid; Glucose Urine UA Negative (Negative); PH 5.5 (5.0-9.0); Specific Gravity - Urine 1.025 (1.005-1.025); UMIC TRIGGER UA YES
== END 2025-10-12 07:21 | disposition home or self-care (01) ==
LOC: HO.HMGCLDS 07:20
PROVIDERS: PCP Internal Medicine; Visit Provider Internal Medicine
DX: E05.00 Thyrotoxicosis with diffuse goiter without thyrotoxic crisis or storm (principal); E78.5 Hyperlipidemia, unspecified; I10 Essential (primary) hypertension
CPT/HCPCS: 36415; 80053; 80061; 81001; 82306; 84443; 85025

== ENCOUNTER 2025-10-18 11:47 | Outpatient (AMB) | payer OTHER, SELFPAY ==
[2025-10-18 12:12] VITALS: BP 114/76; PULSE 73; RESP 16; O2SAT 95; BMI 32.2
--- NOTE | 2025-10-18 12:12 | A.OFFPC_ITS ---
Vital Signs 10/18/25 12:12 Height 5 ft 2 in Weight 176 lb BMI 32.2 BP 114/76 Blood Pressure Location Lt brachial Position Sitting Respiration 16 Pulse 73 Pulse Source Pulse Oximeter Pulse Oximetry (%) 95 Oxygen Delivery Method Room Air Intake Visit Reasons: 2 month follow up,resched Allergies Seasonal Allergies Allergy (Mild, Verified 08/09/25 15:53) unknown [place] fruit Allergy (Severe, Uncoded 07/30/25 11:49) Hives Medication List - Last Reconciled 10/18/25 by Carleen De Jesus MD cetirizine 10 mg PO DAILY epinephrine IM hydrocortisone 2.5% (Proctosol HC) 1 appl FL BID-QID PRN meclizine 25 mg PO BID PRN methimazole 10 mg (2 x 5 mg) PO DAILY pravastatin 20 mg PO DAILY valsartan-hydrochlorothiazide 320-12.5 mg 1 tab PO DAILY Tobacco use date assessed: 07/30/25 Dental Screening Dental Screen Date: 01/29/25 HPI 2 month follow up,resched HPI Details Patient presents for the follow-up on hypertension hyperlipidemia hyperthyroidism controlled on methimazole. PFSH Medical History Nephrolithiasis Graves disease Hyperthyroidism Anemia Nephrolithiasis HTN (hypertension) Surgical History Hx of colonoscopy Hx of appendectomy Family History Father No problems noted. Mother Hypertension Social History Housing: House Patient Tobacco Use Status: Never used Tobacco e-Cigarette/Vaping Use: Never Used service: No Current occupational status: employed Cognitive needs: No Hearing needs: No Vision needs: No Questionnaire PHQ-9 Over the last 2 weeks, how often have you been bothered by any of the following problems? 1. Little interest or pleasure in doing things: not at all 2. Feeling down, depressed, or hopeless: not at all 3. Trouble falling or staying asleep, or sleeping too much: not at all 4. Feeling tired or having little energy: not at all 5. Poor appetite or overeating: not at all 6. Feeling bad about yourself - or that you are a failure or have let yourself or your family down: not at all 7. Trouble concentrating on things, such as reading the newspaper or watching television: not at all 8. Moving or speaking so slowly that other people could have noticed. Or the opposite - being so fidgety or restless that you have been moving around a lot more than usual: not at all 9. Thoughts that you would be better off or of hurting yourself in some way: not at all Total score: 0 Depression Screening Interpretation: Negative Depression Screening Done: Yes Source: Developed by Drs. Amandeep Montero, Lara Lucas, Patrick Roberts and colleagues, with an educational elmer from [employer]. Thrive Questionnaire Date Thrive assessed: 01/24/25 I am a: Patient What is your living situation today?: I have a steady place to live Within the past 12 months, did the food you bought not last and you didn't have the money to get more?: Never true Within the past 12 months, did you worry whether your food would run out before you got money to buy more?: Never true Do you have trouble paying for medicines?: No Do you have trouble getting transportation to medical appointments?: No Do you have trouble paying your heating and electricity bill?: No Do you have trouble taking care of your child, family member or friend?: No Do you have trouble with day-to-day activities such as bathing, preparing meals, shopping, managing finances, etc.?: No Are you currently unemployed and looking for a job?: No Are you interested in more education?: No Please select the resources that you would like help with: None Currently or been in a relationship where the following occur: I choose not to answer THRIVE Score: 0 AGUSTO-7 AMB Questionnaire AGUSTO-7 Date AGUSTO - 7 assessed: 01/29/25 Source: Developed by Drs. Amandeep Montero, Lara Lucas, Patrick Roberts and colleagues, with an educational elmer from [employer]. Review of Systems Const All systems reviewed & are unremarkable except as noted in HPI and below Eyes Reports no additional complaints ENT Reports no additional complaints Card Reports no additional complaints Resp Reports no additional complaints GI Reports no additional complaints Reports no additional complaints Physical exam (Primary Care) Vital Signs: Last Vital Signs Pulse 73 10/18/25 12:12 Resp 16 10/18/25 12:12 BP 114/76 10/18/25 12:12 Pulse Ox 95 10/18/25 12:12 Oxygen Delivery Method Room Air 10/18/25 12:12 BMI result Body Mass Index 32.2 Tobacco/Smoking Status: Tobacco use Status Tobacco use date assessed 07/30/25 10/18/25 12:12 Patient Tobacco Use Status Never used Tobacco 10/18/25 12:12 e-Cigarette/Vaping Use Never Used 10/18/25 12:12 PHQ-9: PHQ-9 Score PHQ-9: Total score 0 10/18/25 12:12 Depression Screening Interpretation: Negative Thrive Assessment: Date of Thrive Assessment Date Thrive assessed 01/24/25 10/18/25 12:12 Currently or been in a relationship where the following occur: I choose not to answer Const General: no acute distress HENMT Head: Yes normal to inspection Eyes General: appearance normal, both eyes and all related structures Neck Neck: Yes supple Resp Effort & Inspection: normal respiratory effort Auscultation: clear to auscultation bilaterally Cardio Rhythm: regular rhythm Heart sounds: S1 normal heart sound present and S2 normal heart sound present Coding Level of Care Code Est Pt Level 4 (12623) Diagnoses HTN (hypertension) I10 Hyperlipemia E78.5 Hyperthyroidism E0 Assessment & Plan Assessment & Plan (1) HTN (hypertension): Code(s): I10 - Essential (primary) hypertension Category: Medical Plan: Continue current medications (2) Hyperlipemia: Code(s): E78.5 - Hyperlipidemia, unspecified Category: Medical Plan: Continue statin (3) Hyperthyroidism: Comment: Follows up with [facility] endocrinology Code(s): - Thyrotoxicosis, unspecified without thyrotoxic crisis or storm Category: Medical Plan: Continue methimazole follow-up in 6 months with a fasting labs before Orders: Orders Comprehensive [place]. Panel Fast 6 Months - Thyrotoxicosis, unspecified without thyrotoxic crisis or storm, E78.5 - Hyperlipidemia, unspecified, I10 - Essential (primary) hypertension TSH reflex Free T4 6 Months E0 - Thyrotoxicosis, unspecified without thyrotoxic crisis or storm, E78.5 - Hyperlipidemia, unspecified, I10 - Essential (primary) hypertension UA w Microscopic 6 Months E0. - Thyrotoxicosis, unspecified without thyrotoxic crisis or storm, E78.5 - Hyperlipidemia, unspecified, I10 - Essential (primary) hypertension Lipid Panel 6 Months E0. - Thyrotoxicosis, unspecified without thyrotoxic crisis or storm, E78.5 - Hyperlipidemia, unspecified, I10 - Essential (primary) hypertension Complete Blood Count Auto Diff 6 Months E0. - Thyrotoxicosis, unspecified without thyrotoxic crisis or storm, E78.5 - Hyperlipidemia, unspecified, I10 - Essential (primary) hypertension Medications: Refilled valsartan-hydrochlorothiazide 320-12.5 mg 1 tab PO DAILY 90 tabs 3RF methimazole 10 mg (2 x 5 mg) PO DAILY 180 tabs 3RF pravastatin 20 mg PO DAILY 90 tabs 3RF
== END 2025-10-18 13:29 | disposition home or self-care (01) ==
PROVIDERS: PCP Internal Medicine; Visit Provider Internal Medicine
DX: I10 Essential (primary) hypertension (principal); E78.5 Hyperlipidemia, unspecified; E05.90 Thyrotoxicosis, unspecified without thyrotoxic crisis or storm

== ENCOUNTER → 2025-10-18 11:47 | Outpatient (BNVA) | payer OTHER, SELFPAY | PROVIDERS: PCP Internal Medicine; Visit Provider Internal Medicine | DX: I10 Essential (primary) hypertension (principal); E78.5 Hyperlipidemia, unspecified; E05.90 Thyrotoxicosis, unspecified without thyrotoxic crisis or storm | CPT/HCPCS: 99212 ==